=== PATIENT | female | born 1955 | race Caucasian/White ===

== ENCOUNTER 2021-02-24 11:22 | Emergency (ER) | payer MEDICARE, MEDICAID, SELFPAY ==
--- NOTE | ~2021-02-24 | XR_ITS ---
EXAMINATION: CHEST WITH LEFT RIBS, PELVIS AND LEFT HIP. LUMBAR SPINE. CLINICAL INFORMATION: Slipped and fell. Pain low back and left hip and leftRibs. COMPARISON: None TECHNIQUE: Lumbar spine 3 views. AP pelvis and left hip 3 views. Chest and left RIBS 4 views. FINDINGS: LUMBAR SPINE: There is normal lumbar lordosis. The vertebral heights and alignment is normal. There is loss of L2-L3 disc height. Rest the disc heights are maintained normal. There is mild endplate spondylosis throughout lumbar spine. No acute fracture, lytic or sclerotic process seen. There is moderate stool in the left colon. AP PELVIS: There is normal symmetry of bilateral SI joints and hip joints. There is mild pelvic tilt with the right hip higher compared to left side. No visible fracture or lytic process. There is mild constipation with scattered phleboliths in the pelvis. LEFT HIP: AP and frog-leg views left hip reveal no visible acute fracture, dislocation, bony erosive changes or loose bodies. The soft tissues are normal. The acetabulum is normal. CHEST: The lungs are well-expanded and clear of acute process. The heart size and pulmonary vascularity is normal. No bony thorax and abnormality seen. Left RIBS: There is no visible fracture or bony abnormality. The soft tissues are normal. XR/XR ribs LT min 3V w CXR1V IMPRESSION: Unremarkable lumbar spine., AP pelvis and left hip. Unremarkable chest exam. No left rib fractures seen.
--- NOTE | ~2021-02-24 | XR_ITS ---
EXAMINATION: CHEST WITH LEFT RIBS, PELVIS AND LEFT HIP. LUMBAR SPINE. CLINICAL INFORMATION: Slipped and fell. Pain low back and left hip and leftRibs. COMPARISON: None TECHNIQUE: Lumbar spine 3 views. AP pelvis and left hip 3 views. Chest and left RIBS 4 views. FINDINGS: LUMBAR SPINE: There is normal lumbar lordosis. The vertebral heights and alignment is normal. There is loss of L2-L3 disc height. Rest the disc heights are maintained normal. There is mild endplate spondylosis throughout lumbar spine. No acute fracture, lytic or sclerotic process seen. There is moderate stool in the left colon. AP PELVIS: There is normal symmetry of bilateral SI joints and hip joints. There is mild pelvic tilt with the right hip higher compared to left side. No visible fracture or lytic process. There is mild constipation with scattered phleboliths in the pelvis. LEFT HIP: AP and frog-leg views left hip reveal no visible acute fracture, dislocation, bony erosive changes or loose bodies. The soft tissues are normal. The acetabulum is normal. CHEST: The lungs are well-expanded and clear of acute process. The heart size and pulmonary vascularity is normal. No bony thorax and abnormality seen. Left RIBS: There is no visible fracture or bony abnormality. The soft tissues are normal. XR/XR hip LT w PEL1V IMPRESSION: Unremarkable lumbar spine., AP pelvis and left hip. Unremarkable chest exam. No left rib fractures seen.
--- NOTE | ~2021-02-24 | XR_ITS ---
EXAMINATION: CHEST WITH LEFT RIBS, PELVIS AND LEFT HIP. LUMBAR SPINE. CLINICAL INFORMATION: Slipped and fell. Pain low back and left hip and leftRibs. COMPARISON: None TECHNIQUE: Lumbar spine 3 views. AP pelvis and left hip 3 views. Chest and left RIBS 4 views. FINDINGS: LUMBAR SPINE: There is normal lumbar lordosis. The vertebral heights and alignment is normal. There is loss of L2-L3 disc height. Rest the disc heights are maintained normal. There is mild endplate spondylosis throughout lumbar spine. No acute fracture, lytic or sclerotic process seen. There is moderate stool in the left colon. AP PELVIS: There is normal symmetry of bilateral SI joints and hip joints. There is mild pelvic tilt with the right hip higher compared to left side. No visible fracture or lytic process. There is mild constipation with scattered phleboliths in the pelvis. LEFT HIP: AP and frog-leg views left hip reveal no visible acute fracture, dislocation, bony erosive changes or loose bodies. The soft tissues are normal. The acetabulum is normal. CHEST: The lungs are well-expanded and clear of acute process. The heart size and pulmonary vascularity is normal. No bony thorax and abnormality seen. Left RIBS: There is no visible fracture or bony abnormality. The soft tissues are normal. XR/XR lumbar spine 2-3V IMPRESSION: Unremarkable lumbar spine., AP pelvis and left hip. Unremarkable chest exam. No left rib fractures seen.
[2021-02-24 11:40] VITALS: BP 133/72; PULSE 70; RESP 18; TEMP 36.4; O2SAT 98; BMI 20.5
--- NOTE | 2021-02-24 12:05 | ED.FALL ---
HPI - Fall General Chief Complaint: Fall Stated Complaint: fall - back & rib pain Time Seen by Provider: 02/24/21 12:00 Source: patient Mode of arrival: ambulatory Limitations: no limitations History of Present Illness HPI Narrative: This is a 66-year-old female that presents emergency department with 6 days left-sided rib pain, shortness of breath, and left lower back pain. She states she was in her bath tub, cleaning with bleach when she slid onto her left side, and she immediately started experiencing severe stabbing pain to the left lateral rib/chest wall. She states that she immediately started feeling short of breath after she hit her side. She also states that 1 day after she slid she had one episode of bloody sputum then resolved, this was 5 days ago since that day she has not been having a cough. She states that breathing makes her rib pain worse, and holding her breath makes it better. She also reports left lower back pain since she slipped and fell. She states she did not hit her head, did not lose consciousness denies chest pain, dizziness, changes in bowel habits, fevers, chills, sick contacts, numbness, paresthesias. She is not on blood thinners. complaint: fall Onset (ago): day(s) (6 days ) Fall from: other (from kneeling ) Fall witnessed: no Place fall occurred: home Loss of consciousness: none Prolonged down time: no Symptoms prior to fall: none Context: tripped/slipped and other (slipped in bathtub) Location of injury: chest, back and other (left ribs) Severity: severe Severity scale (1-10): 9 Quality: sharp Associated symptoms (after fall): chest pain and shortness of breath Related Data Previous Rx's Medication Instructions Recorded cyclobenzaprine 10 mg tablet 10 mg PO Q8H #10 tab 02/24/21 oxycodone 5 mg tablet 5 mg PO Q6H PRN #14 tab 02/24/21 Allergies Allergy/AdvReac Type Severity Reaction Status Date / Time Iodinated Contrast Media Allergy Mild SWELLING Verified 02/24/21 11:39 [IV Dye, Iodine Containing] Review of Systems Review of Systems: Constitutional : No Weight loss, No Fever, No Chills, No Night Sweats, No Fatigue, NoMalaise ENT/Mouth: No ear pain, No sore throat, No Difficulty swallowing Cardiovascular : No Chest Pain, + SOB, No Dyspnea on Exertion, No Orthopnea, NoEdema, No Palpitations Respiratory : + Cough, No Sputum, No Wheezing, No Dyspnea, + one episode coughing up blood Gastrointestinal : No Nausea, No Vomiting, No abdominal pain, No Diarrhea, No blood streaked emesis, No coffee-ground emesis, No gross hematemesis, No blood streak stool, No gross hematochezia, No Melena Genitourinary : No irregular bleeding, No Dysuria, No Urinary Frequency, No Hematuria,No Urinary Incontinence, No Urgency, No Flank Pain Musculoskeletal : No joint pain, No Myalgias, No Joint Swelling, + left sided rib pain Skin : No Skin Lesions, No rash Neuro : No Weakness, No Numbness, No Paresthesias, No Loss of Consciousness, NoDizziness, No Headache Psych : No Social Issues, Heme/Lymph: No Bruising, No Bleeding,No Lymphadenopathy Endocrine : No Polyuria, No Polydipsia, No Temperature Intolerance Yes all other systems are reviewed and are negative COUNTS INCLUDE 234 BEDS AT THE [facility] Past Medical History Attestation statement: The following information was validated with the patient. Social History Social History Advance Directives: No Physical Exam Vital Signs: Vital Signs: Last Vital Signs Temp 97.5 F 02/24/21 11:40 Pulse 70 02/24/21 11:40 Resp 18 02/24/21 11:40 BP 133/72 02/24/21 11:40 Pulse Ox 98 02/24/21 11:40 Body Mass Index 20.5 vital signs have been reviewed as normal and appeared to be correct. Blood pressure normal. Heart rate normal. Respiration rate normal. Temperature normal. Oxygen saturation normal. Appearance: Alert. Oriented X3. No acute distress. Head: Normal external exam. Normocephalic. Eyes: PERRLA. EOMI. Conjunctiva and sclera normal. Eyelids normal. ENT: Pharynx normal. Uvula midline. Moist mucous membranes. No trismus noted. No drooling noted. No muffled voice noted. Neck: Normal inspection. Neck supple. FROM. No adenopathy. No meningeal signs. CVS: Normal heart rate and rhythm. Heart sound normal. No murmurs noted. Pulses normal throughout. Respiratory: No respiratory distress. Painless inspiration. + breath sounds diminished to left side. + pain to palpation over left sided ribs no overlying skin changes no paradoxical chest wall movement/breathing noted. No wheezes/rales/rhonchi noted. No accessory muscle usage noted or decreased air movement noted. No crepitus is noted. Not consistent with flail chest. No obvious deformities are noted. No obvious signs of trauma are noted. Abdomen: Soft and nontender. Nondistended. No guarding. No rigidity. Bowel sounds normal in all 4 quadrants. No distention noted. No organomegaly noted. No visible injury noted. No rebound tenderness. Negative Rovsing sign. Negative obturator's sign. Negative psoas sign. Negative Castillo sign. Back: No CVA tenderness. + limited range of motion noted noted to pain. Although no obvious deformities are noted. No step-offs are noted. No obvious injuries are noted. Patient neuro intact bilaterally is seen all 4 extremities. Reflex intact bilat and distant all 4 extremities. Negative straight leg raise bilaterally. Skin: Skin warm and dry. Normal skin color. Normal skin turgor. No rashes/lesions/lacerations noted. Extremities: Extremities exhibit normal range of motion. Extremities nontender. Neuro: Oriented X 3. No motor deficit. No sensory deficit. Reflexes normal. Normal steady gait. Course Course Course Narrative: 66-year-old female that presents to the emergency department after slip and fall onto her left side in the shower that occurred 6 days ago. She reports pain to her left side that increases with inspiration, she also reports shortness of breath for 6 days that began right after she slipped on her left side. Five days ago she also reports she had one episode of coughing up blood. She is not on any blood thinners, she did not hit her head, lose consciousness. She denies chest pain, abdominal pain, fevers, chills, bladder/bowel incontinence. Upon physical examination she is noted to be evidently on comfortable, she is in pain when she inhales, there is tenderness to palpation to the left lateral rib cage. There are no skin changes noted no ecchymosis or erythema. There is no paradoxical breathing/chest wall movement noted. There is also no step-offs noted in the anterior posterior chest. Decreased breath sounds are noted to the left side, when compared to the right side. Based off of this patient's physical examination, and history x-rays of the left ribs, lumbar spine, left hip have been ordered. A COVID swab his also been done at this time. Reevaluation(s) Reevaluation #1: No significant findings on x-ray, no fractures or pneumothorax. Plan is to discharge patient home at this time with pain medicaions MDM - Fall Medical Records Attestation: I reviewed the patient's medical records. Lab Data Labs: Lab Results 02/24/21 Range/Units 12:11 COVID-19 ([facility]) Negative (Negative) COVID-19 Clin Com See Note Imaging Data Hip/pelvis, lumbar spine, rib x-ray: Attestation: I personally reviewed and interpreted this imaging study as follows: Radiologist's impression: FINDINGS: LUMBAR SPINE: There is normal lumbar lordosis. The vertebral heights and alignment is normal. There is loss of L2-L3 disc height. Rest the disc heights are maintained normal. There is mild endplate spondylosis throughout lumbar spine. No acute fracture, lytic or sclerotic process seen. There is moderate stool in the left colon. AP PELVIS: There is normal symmetry of bilateral SI joints and hip joints. There is mild pelvic tilt with the right hip higher compared to left side. No visible fracture or lytic process. There is mild constipation with scattered phleboliths in the pelvis. LEFT HIP: AP and frog-leg views left hip reveal no visible acute fracture, dislocation, bony erosive changes or loose bodies. The soft tissues are normal. The acetabulum is normal. CHEST: The lungs are well-expanded and clear of acute process. The heart size and pulmonary vascularity is normal. No bony thorax and abnormality seen. Left RIBS: There is no visible fracture or bony abnormality. The soft tissues are normal.? XR/XR ribs LT min 3V w CXR1V IMPRESSION: Unremarkable lumbar spine., AP pelvis and left hip. ? Unremarkable chest exam. No left rib fractures seen.? Discharge Plan Discharge Clinical Impression: Contusion, Chest wall muscle strain, Lumbar strain Patient Disposition: Home, Self-Care Instructions: Muscle Strain (ED), Low Back Strain (ED) Additional Instructions: Take medications as prescribed Follow-up with her PCP in 2 days Return to the emergency department with new, or worsening symptoms. Prescriptions: New oxycodone 5 mg tablet 5 mg PO Q6H PRN (Reason: pain) Qty: 14 RF: 0 cyclobenzaprine 10 mg tablet 10 mg PO Q8H Qty: 10 RF: 0 Referrals: Asif Sam MD [Primary Care Provider] - 2 days
[2021-02-24 12:37] LABS: COVID-19 Test Negative (Negative); IDNOW Serial# 9DD0AD1C
[2021-02-24] MEDS: oxyCODONE HCl Immed Release 5 MG TABLET PO (14:06)
== END 2021-02-24 14:15 | disposition home or self-care (01) ==
PROVIDERS: Physician Assistant Medical; Emergency Provider Emergency Medicine; PCP Family Medicine
DX: S29.011A Strain of muscle and tendon of front wall of thorax, initial encounter (principal); S39.012A Strain of muscle, fascia and tendon of lower back, initial encounter; R07.81 Pleurodynia; M25.552 Pain in left hip; W18.2XXA Fall in (into) shower or empty bathtub, initial encounter; Y93.E8 Activity, other personal hygiene; Y92.002 Bathroom of unspecified non-institutional (private) residence as the place of occurrence of the external cause; Y99.9 Unspecified external cause status; Z79.899 Other long term (current) drug therapy; Z20.822 Contact with and (suspected) exposure to COVID-19
CPT/HCPCS: 36415; 71101; 72100; 73502; 87635; 99283; 99284

== ENCOUNTER 2021-07-02 11:25 | Emergency (ER) | payer MEDICARE, MEDICAID, SELFPAY ==
--- NOTE | ~2021-07-02 | XR_ITS ---
EXAMINATION: XR KNEE, LEFT CLINICAL INFORMATION: Left posterior knee pain COMPARISON: None TECHNIQUE: Four views of the left knee. FINDINGS: Bone alignment is normal. No acute fracture or dislocation is seen. There is a well-corticated soft tissue ossification adjacent to the medial femoral condyle questionable for old medial collateral ligament injury. There is mild arthritis at the patellofemoral joint with small osteophytes. There is a small osteophyte at the quadriceps tendon insertion to the patella. There is a small joint effusion. XR/XR knee LT 4V IMPRESSION: Probable old trauma to the medial femoral condyle/medial collateral ligament. Mild degenerative changes at the patellofemoral joint and small joint effusion.
--- NOTE | ~2021-07-02 | US_ITS ---
EXAMINATION: US VENOUS ULTRASOUND WITH DOPPLER LOWER EXTREMITY, LEFT CLINICAL INFORMATION: Left calf/posterior knee pain COMPARISON: X-ray from earlier the same day TECHNIQUE: Ultrasound of the deep veins is performed from the hip to the calf with compression sonography and color and pulse Doppler assessment. Spectral analysis with color-flow imaging is performed. FINDINGS: There is normal venous compression and respiratory variation and augmented flow. The visualized common femoral vein, superficial femoral vein, profunda femoral vein, popliteal vein, and the trifurcation region shows no evidence of deep venous thrombosis. There is a 7.3 x 1.5 x 5.6 cm Johnson's cyst. There is a small left groin lymph node. US/US venous duplex LE LT IMPRESSION: No DVT demonstrated in the left lower extremity. 7.3 x 1.5 x 5.6 cm Johnson's cyst.
[2021-07-02 11:41] VITALS: BP 162/78; PULSE 80; RESP 18; TEMP 36.5; O2SAT 97; BMI 21.2
--- NOTE | 2021-07-02 11:49 | ED_ITS ---
HPI - General Adult General Chief complaint: Extremity Injury, Lower Stated complaint: L KNEE SWELLING PAINFUL Time Seen by Provider: 07/02/21 11:42 Source: patient Mode of arrival: ambulatory Limitations: no limitations History of Present Illness HPI narrative: 66-year-old female presents to ED for left calf and left posterior knee pain since this morning. Patient denies any trauma. Patient states no redness, fever, chills, leg swelling or decreased in mobility. Patient states left calf and left posterior knee pain worse on movement. Patient states she fist felt pain while sitting in the bed and turning left lower extremity this morning. Patient denies any chest pain, shortness of breath, weakness, or dizziness. Related Data Previous Rx's Medication Instructions Recorded cyclobenzaprine 10 mg tablet 10 mg PO Q8H #10 tab 02/24/21 oxycodone 5 mg tablet 5 mg PO Q6H PRN #14 tab 02/24/21 naproxen 500 mg tablet 500 mg PO BID PRN 10 Days #20 tab 07/02/21 prednisone 20 mg tablet 40 mg PO DAILY 5 Days #10 tab 07/02/21 Allergies Allergy/AdvReac Type Severity Reaction Status Date / Time Iodinated Contrast Media Allergy Mild SWELLING Verified 02/24/21 11:39 [IV Dye, Iodine Containing] Review of Systems Verdana 4l Review of Systems: Verdana 4d left upper calf/posterior Verdana 4d knee pain Verdana 4d Yes all other systems are reviewed and are negative [facility] Past Medical History Medical History (Updated 07/02/21 @ 12:54 by DAVID Barron) No known health problems Social History Social History Advance Directives: No Advance Directives Information Provided: No Physical Exam Verdana 4l Vital Signs: Verdana 4d Verdana 4d Vital Signs: Verdana 4d Verdana 4Bd Last Vital Signs Verdana 4d Complex Care Nurse New 4d Complex Care Nurse New 4d Temp 97.7 F 07/02/21 11:41 Complex Care Nurse New 4d Pulse 80 07/02/21 11:41 Complex Care Nurse New 4d Resp 18 07/02/21 11:41 BP 162/78 H 07/02/21 11:41 Pulse Ox 97 07/02/21 11:41 BMI result Body Mass Index 21.2 Const: General: cooperative, healthy appearing, comfortable, no acute distress, well developed, alert, awake and Physically active Orientation/consciousness: pat ient oriented x3 HENMT: Head: Yes normal to inspection, Yes No palpable skull fracture present, Yes normocephalic, Yes atraumatic and No abrasion Eyes: General: appearance normal, both eyes and all related structures Neck: Neck: Yes normal visual inspection, Yes full ROM, Yes no lymphadenopathy, Yes no meningeal signs, Yes trachea midline and Yes supple Chest: Chest palpation & inspection: normal inspection of the chest and normal palpation of entire chest wall Resp: Effort & Inspection: normal respiratory effort and able to speak in complete sentences Auscultation: clear to auscultation bilaterally Cardio: Jugular venous distension: no JVD Heart sounds: S1 normal heart sound present and S2 normal heart sound present GI: Inspection: Yes normal to inspection and No abdominal wall ecchymosis Palpation (GI): Soft to palpation, not firm, nontender, no guarding and not rigid : General: No CVA tenderness and Yes no CVA tenderness Back/Spine/Pelvis: Back: no CVA tenderness, No CVA tenderness and No back tenderness Skin: General skin exam: no rashes or lesions noted and elasticity normal Neuro: General: patient oriented x3, gait normal, moves all extremities, Normal light touch and pain sensation, no meningeal signs, no focal motor deficits, CN's II- XI intact bilaterally and normal sensation to monofilament Extrem: Other: Anterior knee negative for any swelling, redness, warmth, ecchymosis, or deformity. Patient has complete range of motion of knee. Left lower extremity pulses intact. Vascular/motor/neuro exam intact. Left lower extremity positive for eczema rash. Patient states rash is chronic. Knee images: 1. Positive for upper calf tenderness. Negative for any erythema or swelling. Negative for palpable cord. Negative for any ecchymosis or deformity. 2. Popliteal pulses intact. Positive for mild tenderness. Negative for erythema or palpable cord. And if any ecchymosis deformity. Psych: Appearance: grossly normal, well kempt and not disheveled Course Course Course Narrative: History physical exam indicate muscle spasm will do Doppler on x-ray. Reevaluation(s) Reevaluation #1: Left lower extremity ultrasound came back negative for DVT. Ultrasound came morenita k positive for Johnson cyst. Left knee x-ray negative for any acute fracture or dislocation. Left knee x-ray positive for osteoarthritis an old medial collateral ligament injury. X-ray shows Tamiko joint effusion. No indication for arthrocentesis. Not suspecting septic joint or gout. Time: 12:48 Medical Decision Making MDM Narrative Medical decision making narrative: Johnson cyst, osteoarthritis Discharge Plan Discharge Clinical Impression: Johnson's cyst of knee, Osteoarthritis of knee, Joint effusion of knee Patient Disposition: Home, Self-Care Instructions: Osteoarthritis (ED), Bakers Cyst (ED), Swollen Joint (ED) Additional Instructions: Your x-ray shows arthritis small amount of fluid in the knee. Ultrasound negative for blood clot in your leg but does show cyst in posterior knee. Return to ED for any swelling of knee, redness, calf pain, coughing up blood, fever, chills, chest pain, shortness of breath, inability to ambulate, or any other concerning symptoms. Please follow up with PCP Prescriptions: New prednisone 20 mg tablet 40 mg PO DAILY 5 Days Qty: 10 0RF naproxen 500 mg tablet 500 mg PO BID PRN (Reason: pain) 10 Days Qty: 20 0RF No Action oxycodone 5 mg tablet 5 mg PO Q6H PRN (Reason: pain) Qty: 14 0RF Rx Instructions: Can partially fill prescription upon request cyclobenzaprine 10 mg tablet 10 mg PO Q8H Qty: 10 0RF Referrals: Noah Duke MD [Physician] - 2 days (Left Johnson cysts) Stand Alone Forms: Work/School Release Interventions: ED Discharge Assessment Last Done: 07/02/21 13:05 Discharge Date/Time: 07/02/21 13:21 Print Language: Ghanaian
== END 2021-07-02 13:21 | disposition home or self-care (01) ==
PROVIDERS: Emergency Provider Emergency Medicine Emergency Medical Services; PCP Family Medicine
DX: M71.22 Synovial cyst of popliteal space [Baker], left knee (principal); M17.12 Unilateral primary osteoarthritis, left knee; M25.462 Effusion, left knee; M25.562 Pain in left knee
CPT/HCPCS: 73564; 93971; 99283; 99284

== ENCOUNTER 2021-07-31 07:01 | Outpatient (REF) | payer MEDICARE, MEDICAID, SELFPAY | END 2021-07-31 07:02 | disposition home or self-care (01) | LOC: HO.HOSX 07:01 | PROVIDERS: Visit Provider Physician Assistant | DX: Z13.89 Encounter for screening for other disorder (principal) ==

== ENCOUNTER 2021-08-25 10:40 | Outpatient (REF) | payer MEDICARE, MEDICAID, SELFPAY ==
--- NOTE | ~2021-08-25 | XR_ITS ---
EXAMINATION: KNEE X-RAY CLINICAL INFORMATION: Pain COMPARISON: Previous x-ray June 2021 TECHNIQUE: Standing AP view of both knees and lateral and sunrise view of the left knee FINDINGS: Left knee: Bone alignment is normal. No acute fracture or dislocation is seen. There is a well-corticated soft tissue ossification adjacent to the medial femoral condyle that may be related to old trauma. There are mild degenerative changes at the patellofemoral joint. Joint spaces are otherwise normal. There is a small joint effusion. Standing AP view of the right knee is unremarkable. XR/XR knee LT 2V IMPRESSION: Right knee: Question old trauma to the medial femoral condyle. Mild degenerative changes at the patellofemoral joint and small joint effusion. Unremarkable standing AP view of the right knee.
--- NOTE | ~2021-08-25 | XR_ITS ---
EXAMINATION: KNEE X-RAY CLINICAL INFORMATION: Pain COMPARISON: Previous x-ray June 2021 TECHNIQUE: Standing AP view of both knees and lateral and sunrise view of the left knee FINDINGS: Left knee: Bone alignment is normal. No acute fracture or dislocation is seen. There is a well-corticated soft tissue ossification adjacent to the medial femoral condyle that may be related to old trauma. There are mild degenerative changes at the patellofemoral joint. Joint spaces are otherwise normal. There is a small joint effusion. Standing AP view of the right knee is unremarkable. XR/XR knee standing BI IMPRESSION: Right knee: Question old trauma to the medial femoral condyle. Mild degenerative changes at the patellofemoral joint and small joint effusion. Unremarkable standing AP view of the right knee.
== END 2021-08-25 10:41 | disposition home or self-care (01) ==
LOC: HO.HOSX 10:40
PROVIDERS: PCP Family Medicine; Visit Provider Physician Assistant
DX: M25.561 Pain in right knee (principal); M17.12 Unilateral primary osteoarthritis, left knee
CPT/HCPCS: 73560; 73565; 99202

== ENCOUNTER 2021-10-26 10:46 | Emergency (ER) | payer MEDICARE, MEDICAID, SELFPAY ==
--- NOTE | ~2021-10-26 | XR_ITS ---
EXAMINATION: XR LUMBOSACRAL SPINE CLINICAL INFORMATION: Right lumbar pain. COMPARISON: None TECHNIQUE: Three views of the lumbosacral spine. FINDINGS: There is normal lumbar lordosis. The vertebral heights and alignment are normal. There is loss of L2-L3 disc height. Rest of the disc heights are normal. There is mild ventral spondylosis L1-L2, L2-L3, L3-L4 disc levels. No lytic or sclerotic process seen. The SI joints are symmetrical. XR/XR lumbar spine 2-3V IMPRESSION: Mild degenerative disc changes L2-L3 disc level. There is mild ventral spondylosis throughout lumbar spine. No acute fracture seen.
[2021-10-26 10:48] VITALS: BP 142/74; PULSE 75; RESP 18; TEMP 36.9; O2SAT 99; BMI 22.1
[2021-10-26 10:58] LABS: MANUAL DIFF FLAG NO
[2021-10-26 11:01] LABS: Basophils Percent Auto 0.4 % (0-2); Eosinophils Absolute Auto 0.1 X10*3/uL (0.0-0.4); Eosinophils Percent Auto 1.6 % (0-4); Hematocrit 38.9 % (37.0-47.0); Imm Gran Abs Auto 0.03 X10*3/uL (0.00-0.03); Imm Gran Pct Auto 0.4 % (0.0-0.4); Lymphocytes Absolute Auto 1.3 X10*3/uL (1.2-4.9); Lymphocytes Percent Auto 16.4 % (20-40); Mean Corpuscular HGB Conc 30.8 g/dl (31.0-35.0); Mean Corpuscular Hemoglobin 24.7 pg (27.0-33.0); Mean Corpuscular Volume 80.2 fL (80.0-98.0); Mean Platelet Volume 10.2 fL (9.4-12.3); Monocytes Absolute Auto 0.4 X10*3/uL (0.1-1.2); Monocytes Percent Auto 5.1 % (2-11); Neutrophils Absolute Auto 5.8 x10*3/uL (2.0-8.3); Neutrophils Percent Auto 76.1 % (45-73); Platelet Count 386 X10*3/uL (160-400); Red Blood Count 4.85 X10*6/uL (4.20-5.50); Red Cell Distribution Width 15.7 % (11.0-16.0); White Blood Count 7.6 X10*3/uL (4.8-10.8)
[2021-10-26 11:09] LABS: Appearance Urine CLEAR; Color Urine YELLOW; Glucose Urine UA NEG (NEG); Leukocyte Esterase Urine NEG (NEG); Nitrite Urine NEG (NEG); PH 6.5 (5.0-8.0); Specific Gravity - Urine 1.015 (1.005-1.025); UACC Culture Trigger NO; Urine Blood 1+ (NEG); Urine Ketones NEG (NEG); Urine Protein NEG (NEG-TRACE)
[2021-10-26 11:17] LABS: Anion Gap 13 (12-20); Blood Urea Nitrogen 11 mg/dL (9-16); Calcium 9.8 mg/dL (8.4-10.2); Carbon Dioxide 28 mmol/L (22-29); Chloride 108 mmol/L (96-108); Creatinine Clr Calc Pharmacy 55.1; Estimated Glomerular Filt Rate > 60; Glucose Random 112 mg/dL (60-115); Potassium 4.5 mmol/L (3.3-5.1); Sodium 144 mmol/L (135-145)
[2021-10-26 11:32] LABS: Squamous Epithelial Cell Urine 1+ /LPF; WBC Urine 0 /HPF (0-4)
--- NOTE | 2021-10-26 17:00 | ED_ITS ---
HPI - Female Genitourinary General Chief complaint: Urogenital-Female Stated complaint: kidney pain Time Seen by Provider: 10/26/21 17:00 Source: patient Mode of arrival: ambulatory Limitations: no limitations History of Present Illness HPI Narrative: right lower back pain, patient denies injury. Right lumbar area, worse with lifting the leg up. This morning she needed help from her grandson to get out of bed. Onset (ago): week(s) Severity: mild Related Data Previous Rx's Medication Instructions Recorded cyclobenzaprine 10 mg tablet 10 mg PO Q8H #10 tab 02/24/21 oxycodone 5 mg tablet 5 mg PO Q6H PRN #14 tab 02/24/21 naproxen 500 mg tablet 500 mg PO BID PRN 10 Days #20 tab 07/02/21 prednisone 20 mg tablet 40 mg PO DAILY 5 Days #10 tab 07/02/21 acetaminophen 500 mg capsule 500 mg PO QID PRN #120 cap 08/25/21 meloxicam 15 mg tablet 15 mg PO DAILY 30 Days #30 tab 08/25/21 cyclobenzaprine 10 mg tablet 10 mg PO TID #10 tab 10/26/21 naproxen 500 mg tablet (Naprosyn) 500 mg PO BID #20 tab 10/26/21 Allergies Allergy/AdvReac Type Severity Reaction Status Date / Time Iodinated Contrast Media Allergy Mild SWELLING Verified 08/25/21 11:02 [IV Dye, Iodine Containing] Review of Systems Constitutional: Constitutional: Reports no additional constitutional complaints Eyes: Eyes: Reports no additional eye complaints ENT: Denies dizziness Cardiovascular: Cardiovascular: Reports no additional cardiovascular complaints Respiratory: Respiratory: Reports as per HPI Gastrointestinal: Gastrointestinal: Reports no additional gastrointestinal complaints Genitourinary: Genitourinary: Reports no additional female genitourinary complaints Musculoskeletal: Musculoskeletal: Reports no additional musculoskeletal complaints Integumentary/Breasts: Skin/Breast: Denies rash Neurologic: Reports system reviewed and no additional complaints, except as documented, Denies dizziness and Denies Sensory deficit (Neuro) Psychiatric: Psychiatric: Denies anxiety PMFSH Past Medical History Medical History Hypercholesteremia Hypertension No known health problems Social History Social History Advance Directives: No Advance Directives Information Provided: No Physical Exam Vital Signs: Vital Signs: Last Vital Signs Temp 98.3 F 10/26/21 18:00 Pulse 72 10/26/21 18:00 Resp 16 10/26/21 18:00 BP 163/82 H 10/26/21 18:00 Pulse Ox 96 10/26/21 18:00 BMI result Body Mass Index 22.1 Const: General: healthy appearing Nutritional Appearance: average body habitus Orientation/consciousness: oriented to person and patient oriented x3 Limitations: no limitations HEENT: Head: Yes normal to inspection Ears: external ears normal General nose exam: Normal external nose present Mouth: Normal oral and palatal mucosa present and oropharynx normal Throat: Yes posterior oropharynx normal Eyes: General: appearance normal, both eyes and all related structures Neck: Other: supple Neck: Yes normal visual inspection Chest: Chest palpation & inspection: normal inspection of the chest Resp: Auscultation: clear to auscultation bilaterally Cardio: Jugular venous distension: no JVD Rate: regular rate Rhythm: regular rhythm Heart sounds: S1 normal heart sound present and S2 normal heart sound present GI: Inspection: Yes normal to inspection Palpation (GI): Soft to palpation, nontender and No hepatosplenomegaly present Auscultation: normal bowel sounds Back/Spine/Pelvis: Other: right SI joint tenderness, no sciatica Skin: General skin exam: no rashes or lesions noted Neuro: General: oriented to person and patient oriented x3 Cranial nerves: Yes CN's II-XII intact bilaterally Motor exam (neuro): 5/5 motor strength present throughout Sensory Exam: No Sensory deficit (Neuro) Extrem: General: Yes normal to inspection Psych: Appearance: grossly normal MDM - Female Genitourinary Lab Data Result diagrams: 10/26/21 10:54 10/26/21 10:54 Labs: Lab Results 10/26/21 10/26/21 10/26/21 Range/Units 10:54 10:54 10:57 WBC 7.6 (4.8-10.8) X10*3/uL RBC 4.85 (4.20-5.50) X10*6/uL Hgb 12.0 (12.0-16.0) g/dl Hct 38.9 (37.0-47.0) % MCV 80.2 (80.0-98.0) fL MCH 24.7 L (27.0-33.0) pg MCHC 30.8 L (31.0-35.0) g/dl RDW 15.7 (11.0-16.0) % Plt Count 386 (160-400) X10*3/uL MPV 10.2 (9.4-12.3) fL Immature Gran % (Auto) 0.4 (0.0-0.4) % Neut % (Auto) 76.1 H (45-73) % Lymph % (Auto) 16.4 L (20-40) % [place] % (Auto) 5.1 (2-11) % Eos % (Auto) 1.6 (0-4) % Baso % (Auto) 0.4 (0-2) % Lymph # (Auto) 1.3 (1.2-4.9) X10*3/uL [place] # (Auto) 0.4 (0.1-1.2) X10*3/uL Eos # (Auto) 0.1 (0.0-0.4) X10*3/uL Baso # (Auto) 0.0 (0.0-0.2) X10*3/uL Abs Immat Gran (auto) 0.03 (0.00-0.03) X10*3/uL Absolute Neuts (auto) 5.8 (2.0-8.3) x10*3/uL Absolute Nucleated RBC 0.000 (0.0-0.012) X10*3/uL Nucleated RBC % (auto) 0.0 (0.0-0.2) /100WBC Sodium 144 (135-145) mmol/L Potassium 4.5 (3.3-5.1) mmol/L Chloride 108 (96-108) mmol/L Carbon Dioxide 28 (22-29) mmol/L Anion Gap 13 (12-20) BUN 11 (9-16) mg/dL Creatinine 0.83 (0.5-1.4) mg/dL Estim Creat Clear Calc 55.1 Estimated GFR > 60 Random Glucose 112 (60-115) mg/dL Calcium 9.8 (8.4-10.2) mg/dL Urine Color YELLOW Urine Appearance CLEAR Urine pH 6.5 (5.0-8.0) Ur Specific [place] 1.015 (1.005-1.025) Urine Protein NEG (NEG-TRACE) MG/DL Urine Glucose (UA) NEG (NEG) MG/DL Urine Ketones NEG (NEG) MG/DL Urine Blood 1+ H (NEG) Urine Nitrite NEG (NEG) Ur Leukocyte Esterase NEG (NEG) Urine RBC 5-9 H (0) /HPF Urine WBC 0 (0-4) /HPF Ur Squamous Epith Cells 1+ /LPF Urine Bacteria NONE /LPF Imaging Data lumbar: Radiologist's impression: IMPRESSION: Mild degenerative disc changes L2-L3 disc level. There is mild ventral spondylosis throughout lumbar spine. No acute fracture seen. Discharge Plan Discharge Clinical Impression: Lumbar back pain Patient Disposition: Home, Self-Care Prescriptions: New cyclobenzaprine 10 mg tablet 10 mg PO TID Qty: 10 0RF naproxen [Naprosyn] 500 mg tablet 500 mg PO BID Qty: 20 0RF No Action oxycodone 5 mg tablet 5 mg PO Q6H PRN (Reason: pain) Qty: 14 0RF Rx Instructions: Can partially fill prescription upon request cyclobenzaprine 10 mg tablet 10 mg PO Q8H Qty: 10 0RF prednisone 20 mg tablet 40 mg PO DAILY 5 Days Qty: 10 0RF naproxen 500 mg tablet 500 mg PO BID PRN (Reason: pain) 10 Days Qty: 20 0RF meloxicam 15 mg tablet 15 mg PO DAILY 30 Days Qty: 30 0RF acetaminophen 500 mg capsule 500 mg PO QID PRN (Reason: fever or pain) Qty: 120 0RF Referrals: Physician,Nonstaff [Physician] - 1 week
[2021-10-26] MEDS: Ketorolac Tromethamine 60 MG/2 ML VIAL IM (17:14)
[2021-10-26 18:00] VITALS: BP 163/82; PULSE 72; RESP 16; TEMP 36.8; O2SAT 96
== END 2021-10-26 18:46 | disposition home or self-care (01) ==
PROVIDERS: Emergency Provider Emergency Medicine; PCP Student in an Organized Health Care Education/Training Program
DX: M54.50 Low back pain, unspecified (principal); I10 Essential (primary) hypertension; E78.5 Hyperlipidemia, unspecified
CPT/HCPCS: 36415; 72100; 80048; 81001; 81003; 85025; 96372; 99284; J1885

== ENCOUNTER 2022-02-09 14:48 | Outpatient (REF) | payer MEDICARE, MEDICAID, SELFPAY ==
--- NOTE | ~2022-02-09 | MM_ITS ---
EXAMINATION: BONE DENSITOMETRY CLINICAL INDICATION: Osteoporosis. COMPARISON: This is the patient's baseline examination. TECHNIQUE: Using a [employer]o DXA System (software version: 13.1) manufactured by [employer], dual-energy x-ray absorptiometry was performed of the lumbar spine and left hip. The images are of good technical quality. Summary results are attached. FINDINGS: AP SPINE L1-L4: BMD 1.047 g/cm2, Z-score 0.8, T-score -1.1, osteopenia. LEFT FEMUR, NECK: BMD 0.749 g/cm2, Z-score -0.4, T-score -2.1, osteopenia. LEFT FEMUR, TOTAL: BMD 0.758 g/cm2, Z-score -0.5, T-score -2.0, osteopenia. IDENTIFIED RISK FACTORS: Early menopause, secondary osteoporosis, alcohol 3 more units per day, history of fracture (adult), tobacco use (current smoker), hysterectomy.. HISTORY OF FRACTURE: Other. MEDICATIONS: None listed. MM/XR DEXA axial skeleton IMPRESSION: 1. DIAGNOSIS: Osteopenia based on the lowest T-score value of -2.1 in the femoral neck applying World Health Organization criteria. 2. 10-YEAR FRACTURE RISK PREDICTION, FRAX: Major osteoporotic fracture (clinical spine, forearm, hip or shoulder) 10.7%. Hip fracture 3.0%. 3. Treatment Recommendations: NOF guidelines recommend consideration for treatment in postmenopausal women and men age 50 and older presenting with the following: -A hip or vertebral (clinical or morphometric) fracture. -T-score less than or equal to -2.5 at the femoral neck or spine after appropriate evaluation to exclude secondary causes. -Low bone mass at the hip or spine and a 10-year fracture probability by FRAX of greater than or equal to 3% for hip fracture or greater than or equal to 20% for major osteoporotic fracture based on the [place] adapted WHO algorithm. 4. Other Recommendations: All treatment decisions require clinical judgment and consideration of individual patient factors, including patient preferences, comorbidities, previous drug use, risk factors not captured in the FRAX model (e.g. frailty, falls, vitamin D deficiency, increased bone turnover, interval significant decline in bone density) and possible under or overestimation of fracture risk by FRAX. Additional medical evaluation for secondary cause of low bone mineral density may be appropriate. FUTURE SCAN RECOMMENDATION: People with diagnosed cases of osteoporosis or at high risk for fracture should have regular bone mineral density tests. For patients eligible for Medicare, routine testing is allowed once every 2 years. The testing frequency can be increased to one year for patients who have rapidly progressing disease, those who are receiving or discontinuing medical therapy to restore bone mass, or have additional risk factors.
== END 2022-02-09 14:49 | disposition home or self-care (01) ==
LOC: HO.MAMMO 14:48
PROVIDERS: Visit Provider Nurse Practitioner Primary Care
DX: Z13.820 Encounter for screening for osteoporosis (principal); Z78.0 Asymptomatic menopausal state
CPT/HCPCS: 77080

== ENCOUNTER 2022-10-04 09:12 | Outpatient (REF) | payer MEDICARE, MEDICAID, SELFPAY ==
--- NOTE | ~2022-10-04 | MM_ITS ---
EXAMINATION: MM SCREENING DIGITAL BREAST TOMOSYNTHESIS, BILATERAL CLINICAL INFORMATION: Screening. Asymptomatic. The lifetime risk of breast cancer based on the Tyrer-Cuzick Model is 3%. COMPARISON: Mammography: 03/18/2017, 07/08/2015, 04/26/2012 TECHNIQUE: Digital breast tomosynthesis is performed in both the craniocaudal and mediolateral oblique views along with computer-aided detection (CAD). Synthesized 2D images are generated from the tomosynthesis. FINDINGS: There are scattered areas of fibroglandular density (ACR BI-RADS breast composition Category b). There are no significant masses, abnormal calcifications, or other abnormalities. There are some scattered fine vascular calcifications in each breast. The axilla and skin contours are unremarkable. No significant changes. MM/MM tomosynthesis screening BI IMPRESSION: No mammographic evidence of malignancy. ASSESSMENT: BI-RADS 2: Benign RECOMMENDATION: Routine annual mammography screening. This patient's information was entered into a reminder system with a target due date for their next mammogram.
== END 2022-10-04 09:13 | disposition home or self-care (01) ==
LOC: HO.MAMMO 09:12
PROVIDERS: PCP Nurse Practitioner Primary Care; Visit Provider Nurse Practitioner Primary Care
DX: Z12.31 Encounter for screening mammogram for malignant neoplasm of breast (principal)
CPT/HCPCS: 77063; 77067

== ENCOUNTER 2022-10-13 09:37 | Outpatient (REF) | payer MEDICARE, MEDICAID, SELFPAY ==
[2022-10-13 17:02] LABS: Urine Cytology See Pathology rpt
== END 2022-10-13 09:38 | disposition home or self-care (01) ==
LOC: HO.LNP 09:37
PROVIDERS: PCP Nurse Practitioner Primary Care; Visit Provider Nurse Practitioner Family
DX: R31.29 Other microscopic hematuria (principal)
CPT/HCPCS: 88112; 99202

== ENCOUNTER 2022-10-27 06:57 | Outpatient (REF) | payer MEDICARE, MEDICAID, SELFPAY ==
--- NOTE | ~2022-10-27 | CT_ITS ---
EXAMINATION: CT ABDOMEN AND PELVIS WITHOUT CONTRAST CLINICAL INDICATION: Microscopic hematuria. COMPARISON: None available. TECHNIQUE: 5 mm thin axial and reformatted 3 mm thin sagittal coronal images of the abdomen and pelvis were obtained without contrast. DLP 251 mGy-cm This CT examination was performed using dose optimization technique as appropriate, variously including the following: Automated exposure control Adjustment of MA and/or KV according to patient size(this includes techniques or standardized protocols for targeted exams where dose is matched to indication/reason for exam; extremities or head. Use of iterative reconstruction techniques. FINDINGS: LUNG BASES: The lung bases are clear. The heart size is normal. LIVER, DUCTS AND GALLBLADDER: The liver is homogeneous in density, normal in size and contour. No focal lesion or intrahepatic ductal dilatation. A 5 mm hypodensity is seen along the left hepatic lobe question focal fatty infiltration along the ligament of teres. The gallbladder is unremarkable. SPLEEN: Spleen is normal in size. There is a 1.6 cm hypodensity in the inferior spleen with adjacent calcifications. Question complex cyst versus hemangioma. PANCREAS: Unremarkable. ADRENAL GLANDS: Unremarkable. KIDNEYS AND URETERS: Both kidneys are normal in size, shape and position. No radiopaque renal calculi or hydronephrosis is seen. LYMPHOVASCULAR STRUCTURES: The abdominal aorta is of normal caliber. No abnormally sized retroperitoneal lymph nodes are seen. GI TRACT: There is scattered stool, diverticuli and gas seen throughout the colon without significant distention. The small bowel loops are of normal caliber. Appendix is of normal caliber. No inflammatory process is seen the abdomen. ABDOMINAL WALL: Unremarkable. There is a small foreign body seen outside the anterior abdominal wall producing beam hardening artifact. There is a small lipoma of the right lateral abdominal wall axial image 43/3. It measures 7.5 cm in length on sagittal image 92/6. PELVIS: The bladder is nondistended. The uterus is anteverted and unremarkable. There are scattered phleboliths in the pelvis. OSSEOUS STRUCTURES: No aggressive lytic or sclerotic process is seen. CT/CT kidney stone IMPRESSION: No radiopaque renal calculi or hydroureteronephrosis. The bladder is unremarkable. Colonic diverticulosis with mild constipation. Appendix is normal.
== END 2022-10-27 06:58 | disposition home or self-care (01) ==
LOC: HO.CT 06:57
PROVIDERS: PCP Nurse Practitioner Primary Care; Visit Provider Nurse Practitioner Family
DX: R31.29 Other microscopic hematuria (principal)
CPT/HCPCS: 74176

== ENCOUNTER 2022-11-09 10:42 | Day surgery (SDC) | payer MEDICARE, MEDICAID, SELFPAY ==
[2022-11-05 13:46] VITALS: BMI 22.0
--- NOTE | ~2022-11-09 | FL_ITS ---
EXAMINATION: XR FLUOROSCOPY WITH IMAGES CLINICAL INFORMATION: Cystogram retrograde. COMPARISON: CT of the abdomen and pelvis October 2022 TECHNIQUE: Fluoroscopy Supervised By: Dr. Billy. Fluoroscopy Time: 25.4 seconds. Cumulative Dose: 5.45 mGy. DAP: Gycm2. Images: 4. FINDINGS: Images demonstrate opacification of the bilateral renal collecting systems. There is mild bilateral hydronephrosis. This is new from October 2022 CT scan may be related to contrast injection. FL/FL guidance in OR IMPRESSION: Fluoroscopy guidance for bilateral retrograde exam.
[2022-11-09 12:28] VITALS: BP 165/79; PULSE 62; RESP 15; TEMP 36.5; O2SAT 98
[2022-11-09] MEDS: Lactated Ringers 1,000 ML 100 ML IVCONT (12:53)
--- NOTE | 2022-11-09 15:05 | P.CONAN_ITS ---
Documented by User: Brandy Robles NP 11/08/22 10:44 HPI - Anesthesia Eval Consult details Narrative: 67yo F for Bilateral Cystoscopy Retrograde PMFSH Active Problems Active Problems: All Active Problems (Updated 10/13/22 @ 10:18 by ALEYDA MejiaP-) Microscopic hematuria (Acute) Patellofemoral arthritis of left knee (Acute) Past Medical History Medical History Benign tumor Depression Hypercholesteremia Hypertension No known health problems Social History Social History Patient Tobacco Use Status: Current everyday Tobacco user Tobacco use type: Cigarette Cigarettes Per Day: 3 Use of substances other than those prescribed or required for medical reasons: Yes Substance Use Frequency: Daily Are you DNR?: No Advance Directives: No Advance Directives Information Provided: No Advance Directives on File: No Meds Allergies Allergy/AdvReac Type Severity Reaction Status Date / Time Iodinated Contrast Media Allergy Unknown Anaphylaxis Verified 11/09/22 12:55 [IV Dye, Iodine Containing] Home Medications Medication Instructions Recorded Confirmed Last Taken Type aspirin 81 mg tablet,delayed 81 mg PO DAILY 10/13/22 11/05/22 11/07/22 History release atorvastatin 10 mg tablet 10 mg PO DAILY 10/13/22 11/05/22 Unknown History buspirone 10 mg tablet 10 mg PO TID 10/13/22 11/05/22 Unknown History clonazepam 0.5 mg tablet 0.5 mg PO BID PRN Anxiety 10/13/22 11/05/22 Unknown History lisinopril 10 mg tablet 10 mg PO DAILY 10/13/22 11/05/22 Unknown History mirtazapine 45 mg tablet 45 mg PO BEDTIME 10/13/22 11/05/22 Unknown History zolpidem 5 mg tablet 5 mg PO BEDTIME PRN Insomnia 10/13/22 11/05/22 Unknown History Exam Exam Date and Time: November 08, 2022 1044 Height,Weight and Vital Signs: Height 5 ft 3 in Weight 56.245 kg Assessment and Plan Assessment Anesthesia Assessment: Chart Reviewed Documented by User: Josephine Alegria DO 11/09/22 15:18 [facility] Past Medical History Medical History Benign tumor Depression Hypercholesteremia Hypertension No known health problems Surgical History History of Problems with Anesthesia: No Social History Social History Patient Tobacco Use Status: Current everyday Tobacco user Tobacco use type: Cigarette Cigarettes Per Day: 3 Use of substances other than those prescribed or required for medical reasons: Yes Substance Use Frequency: Daily Are you DNR?: No Advance Directives: No Advance Directives Information Provided: No Advance Directives on File: No Meds Allergies Allergy/AdvReac Type Severity Reaction Status Date / Time Iodinated Contrast Media Allergy Unknown Anaphylaxis Verified 11/09/22 12:55 [IV Dye, Iodine Containing] Home Medications Medication Instructions Recorded Confirmed Last Taken Type aspirin 81 mg tablet,delayed 81 mg PO DAILY 10/13/22 11/05/22 11/07/22 History release atorvastatin 10 mg tablet 10 mg PO DAILY 10/13/22 11/05/22 Unknown History buspirone 10 mg tablet 10 mg PO TID 10/13/22 11/05/22 Unknown History clonazepam 0.5 mg tablet 0.5 mg PO BID PRN Anxiety 10/13/22 11/05/22 Unknown History lisinopril 10 mg tablet 10 mg PO DAILY 10/13/22 11/05/22 Unknown History mirtazapine 45 mg tablet 45 mg PO BEDTIME 10/13/22 11/05/22 Unknown History zolpidem 5 mg tablet 5 mg PO BEDTIME PRN Insomnia 10/13/22 11/05/22 Unknown History Exam Exam Date and Time: November 09, 2022 1505 Height,Weight and Vital Signs: Height 5 ft 3 in Weight 56.245 kg Vital Signs Temperature 97.7 F 11/09/22 12:28 Pulse Rate 62 11/09/22 12:28 Respiratory Rate 15 11/09/22 12:28 Blood Pressure 165/79 H 11/09/22 12:28 Pulse Oximetry 98 11/09/22 12:28 Oxygen Delivery Method Room Air 11/09/22 12:28 Temperature 97.7 F 11/09/22 12:28 Pulse Rate 62 11/09/22 12:28 Respiratory Rate 15 11/09/22 12:28 Blood Pressure 165/79 H 11/09/22 12:28 Pulse Oximetry 98 11/09/22 12:28 Oxygen Delivery Method Room Air 11/09/22 12:28 Airway Mallampati Class: I TM Dist: >3cm Neck ROM: Full Loose/Missing/Broken Teeth: Yes (broken front teeth) Heart: S1S2 Lungs: CTAB Assessment and Plan Assessment Anesthesia Assessment: Anesthesia Plan Discussed and Chart Reviewed Final Anesthetic Review History of Problems with Anesthesia: No NPO: Yes ASA Class: II Final Preanesthetic Review: No Changes in Pt Med Stat, Meds/Allgs Chart Reviewed, Consent Obtained/Reviewed and Anes Risks/Benef Reviewed Patient Risk: Low Procedure Risk: Low Anesthetic Plan Anesthetic Plan: MAC: and Agree w/ Assess. and Plan Disposition: Standard PACU
--- NOTE | 2022-11-09 15:09 | MHC.SHP ---
Pre-Procedural Eval Section A Date of Service: 11/09/22 The patient is an INPATIENT: No The History & Physical has been completed within 30 days and I have reviewed it.: Yes Section B Chief Complaint: Other microscopic hematuria Relevant Family History (Specify if Yes): No Relevant Social History: Tobacco Use Allergies: Allergies Allergy/AdvReac Type Severity Reaction Status Date / Time Iodinated Contrast Media Allergy Unknown Anaphylaxis Verified 11/09/22 12:55 [IV Dye, Iodine Containing] Plan Diagnosis/Plan: Unchanged I have reviewed the history and physical and performed a pertinent physical examination on my patient. No changes have occurred unless specified. The patient has IV contrast allergy. Plan Cystoscopy. bilateral retrogrades. Discussed risks to include but not limited to, blood in the urine, burning with urination, urgency. Time Spent With Patient Time: Total time managing care of this patient today ____ minutes.
[2022-11-09 15:52] VITALS: BP 159/85; PULSE 84; RESP 16; TEMP 36.8; O2SAT 98
--- NOTE | 2022-11-09 15:55 | P.OP_ITS ---
Operative Note Operative Note Date of Service: 11/09/22 Narrative: PreOperative Diagnosis:?? microscopic hematuria, nicotine dependence Post Operative Diagnosis:?? ?Microscopic hematuria, nicotine dependence Procedure: - cystoscopy, bilateral retrograde Findings: No suspicious bladder lesions, bilateral retrogrades, no filling defects, ureters and renal pelvis. Surgeon:?Dr Johnna Hernandez Anesthesia:? MAC Indications for procedure: Dot is a 67 year old female being evauated for microscopic hematuria. Significant history of nicotine dependence. Procedure: After informed consent was verified the patient was brought to the operating placed on the OR table in supine position.? IV sedation was administered per protocol.? The patient was placed in lithotomy position, prepped and draped in the usual sterile fashion.? Safety pause time-out and side of surgery confirmed.? Antibiotics confirmed. 2 % lidocaine jelly was inserted transurethrally. A 22 Sinhala cystoscope was inserted transurethrally, The bladder was visualized.? Both ureteric orifices were in normal position. The? left ureteric orifice was cannulated? and a retrograde examination was performed, ureter and renal calyces within normal limits. The right ureteral orifice was cannulated with the use of a guide wire, retrogrades were within normal limits. The bladder was emptied.? The rigid cystoscope was removed. ? 2 % lidocaine jelly was inserted transurethrally. The patient tolerated the procedure well and was brought to the recovery room in stable condition. Complications: None Drains: None
[2022-11-09 15:57] VITALS: BP 168/90; PULSE 67; RESP 16; O2SAT 98
[2022-11-09 16:07] VITALS: BP 142/94; PULSE 66; RESP 16; TEMP 36.7; O2SAT 99
[2022-11-09] MEDS: Phenazopyridine HCL 200 MG TABLET PO (16:29)
== END 2022-11-09 16:33 | disposition home or self-care (01) ==
PROVIDERS: PCP Nurse Practitioner Primary Care; Visit Provider Urology
PROC: 0TJB8ZZ Inspection of Bladder, Via Natural or Artificial Opening Endoscopic (ICD-10-PCS; CPT 52005; principal; 2022-11-09 11:55)
DX: R31.29 Other microscopic hematuria (principal); I10 Essential (primary) hypertension; E78.00 Pure hypercholesterolemia, unspecified; Z79.82 Long term (current) use of aspirin; Z79.899 Other long term (current) drug therapy; Z91.040 Latex allergy status; F17.210 Nicotine dependence, cigarettes, uncomplicated
CPT/HCPCS: 52005; C1769; J0690; J2250; J3010; Q9967

== ENCOUNTER 2022-12-17 09:19 | Outpatient (REF) | payer MEDICARE, MEDICAID, SELFPAY ==
[2022-12-17 16:26] LABS: Urine Cytology See Pathology rpt
== END 2022-12-17 09:20 | disposition home or self-care (01) ==
LOC: HO.LAB 09:19
PROVIDERS: PCP Nurse Practitioner Primary Care; Visit Provider Nurse Practitioner Family
DX: R31.29 Other microscopic hematuria (principal)
CPT/HCPCS: 88112; 99212

== ENCOUNTER 2022-12-17 09:19 | Outpatient (AMB) | payer MEDICARE, MEDICAID, SELFPAY ==
--- NOTE | 2022-12-17 09:43 | MHC.OFFVIS ---
Intake Intake Visit Reasons: 3w follow up Intake Note: Patient is present for follow up microscopic hematuria Urology Medications: ?pyridium Blood Thinner: aspirin Accompanied by: Self / Same As Patient Allergies Iodinated Contrast Media [IV Dye, Iodine Containing] Allergy (Unknown, Verified 12/17/22 10:01) Anaphylaxis Medication List - Last Reconciled 12/17/22 by LETTY Mejia aspirin 81 mg PO DAILY atorvastatin 10 mg PO DAILY buspirone 10 mg PO TID clonazepam 0.5 mg PO BID PRN cyclobenzaprine 10 mg PO Q8H lisinopril 10 mg PO DAILY mirtazapine 45 mg PO BEDTIME naproxen 500 mg PO BID PRN 10 days zolpidem 5 mg PO BEDTIME PRN HPI HPI Comments History of Present Illness Details Dot is a very pleasant 67-year-old female patient of Dr. Prince. Patient with past medical history of depression, hypercholesteremia, and hypertension. She presents to the office today for a follow-up of her microscopic hematuria. Of note, patient is status post cystoscopy bilateral retrograde in the OR with Dr. Billy on 11/09 for microscopic hematuria in the setting of nicotine dependence. Patient with an allergy to iodine contrast therefore unable to obtain CT urogram for further assessment evaluation. Urine cytology 10/26 Negative for high-grade urothelial carcinoma. These results were reviewed with the patient today. Findings of cystoscopy bilateral retrogrades with no suspicious bladder lesions, bilateral retrogrades, no filling defects, ureters and renal pelvis. These results were also reviewed with the patient today. When asked patient reports to be doing and feeling well. She continues smoking 1-2 cigarettes daily. In office urinalysis results reviewed with the patient today. 1+ microscopic hematuria otherwise within normal limits. Discussed at length importance of limiting/quitting cigarette smoking for overall health and well-being. She otherwise denies any urinary issues or concerns at this time. When asked she denies urinary urgency, urinary frequency, incontinence, nocturia, hematuria, dysuria, foul smelling urine, changes to urinary stream, flank pain, fever, and or chills. She is happy with her current voiding parameters. [facility] Medical History Benign tumor Depression Hypercholesteremia Hypertension No known health problems Social History Patient Tobacco Use Status: Current everyday Tobacco user Tobacco use type: Cigarette Cigarettes Per Day: 3 Review of Systems Const All systems reviewed & are unremarkable except as noted in HPI and below Reports no additional complaints Eyes Reports no additional complaints ENT Reports no additional complaints Card Reports as per HPI Resp Reports no additional complaints GI Reports no additional complaints Reports as per HPI Musc Reports no additional complaints Neuro Reports no additional complaints Psych Reports as per HPI Endo Reports no additional complaints Ishan/Lymph Reports no additional complaints Aller/Immun Reports no additional complaints Physical Exam Const General: cooperative, healthy appearing, comfortable, no acute distress, well developed, alert and awake Orientation/consciousness: patient oriented x3 Limitations: no limitations HEENT Head: Yes normal to inspection, Yes normocephalic and Yes atraumatic Ears: hearing grossly normal bilaterally Eyes General: appearance normal, both eyes and all related structures Neck Neck: Yes normal visual inspection and Yes trachea midline Chest Chest palpation & inspection: normal inspection of the chest Resp Effort & Inspection: normal respiratory effort and able to speak in complete sentences Cardio Rate: regular rate GI Inspection: Yes normal to inspection General: Yes no CVA tenderness Back/Spine/Pelvis Back: no CVA tenderness Skin General skin exam: no rashes or lesions noted Neuro General: patient oriented x3 Extrem General: Yes normal to inspection Psych Appearance: grossly normal and well kempt Mental Status: mental status grossly normal Speech and movement: Normal speech and movement present and Clear speech present Affect: normal affect Attitude: cooperative Thought process: Normal thought process present Thought content: Normal thought content present Insight: Fair insight present (Psych) Judgement: Fair judgement present (Psych) Results AMB Urinalysis, Automated UA Leukoctes 0 Matthias/uL Last Edit by [employer]sen on 12/17/22 09:56 UA Nitrite Negative Last Edit by [employer] on 12/17/22 09:56 UA Urobilinogen 0.2 mg/dL Last Edit by [email or web address] on 12/17/22 09:56 UA Protein 0 mg/dL Last Edit by [email or web address] on 12/17/22 09:56 UA pH 6.0 Last Edit by [email or web address] on 12/17/22 09:56 UA Blood 25 Bubba/uL Last Edit by [employer]sen on 12/17/22 09:56 UA Specific [place] 1.010 Last Edit by Jaylan Connolly on 12/17/22 09:56 UA Ketone Negative Last Edit by Jaylan Connolly on 12/17/22 09:56 UA Bilirubin 0 mg/dL Last Edit by Jaylan Connolly on 12/17/22 09:56 UA Glucose 0 mg/dL Last Edit by Jaylan Connolly on 12/17/22 09:56 Results Reviewed Results Reviewed: Laboratory Last Values Urine pH (Auto) 6.0 12/17/22 09:44 Specific [place] (Auto) 1.010 12/17/22 09:44 Urine Protein (Auto) 0 mg/dL 12/17/22 09:44 Glucose (UA)(Auto) 0 mg/dL 12/17/22 09:44 Urine Ketones (Auto) Negative 12/17/22 09:44 Urine Blood (Auto) 25 Bubba/uL 12/17/22 09:44 Urine Nitrite (Auto) Negative 12/17/22 09:44 Urine Bilirubin (Auto) 0 mg/dL 12/17/22 09:44 Urine Urobilinogen (Auto) 0.2 mg/dL 12/17/22 09:44 Leukocyte Esterase (Auto) 0 Matthias/uL 12/17/22 09:44 Assessment & Plan Assessment & Plan (1) Microscopic hematuria: Code(s): R31.29 - Other microscopic hematuria Plan In office urinalysis results reviewed with the patient today; as noted above Recent urine cytology results reviewed with the patient today; as noted above Patient s/p cystoscopy bilateral retrogrades in OR; findings negative Discussed at length importance of quitting/limiting cigarette smoking for over all health and well being. Patient denies any issues or concerns at this time; she is happy with her current voiding parameters Retroperitoneal ultrasound in 1 year. Follow-up in 1 year with imaging to be completed prior; or sooner with any issues, concerns, and or questions Orders: Orders US retroperitoneal comp 364 Days R31.29 - Other microscopic hematuria Urine Cytology Today R31.29 - Other microscopic hematuria AMB Urinalysis Automated Today Z13.9 - Encounter for screening, unspecified Patient Instructions: The patient had an opportunity to ask questions regarding the treatment plan. All questions were answered. Physical exam, labs, and imaging were discussed and reviewed in detail. As well as risks, benefits, and discussion of treatment choices. No major barriers to understanding were identified. The patient expressed understanding and agreement with the above treatment plan. The patient was made aware they should contact our office by phone for worsening of their current condition, the appearance of new symptoms, or with any questions or concerns. Compliance is encouraged with any medications and follow up testing that is ordered. It is a privilege to be allowed the opportunity to participate in? your urological care.? Again, if you have any questions or concerns If you have any questions or concerns please do not hesitate to contact me. The office is [phone]. This note is constructed using voice recognition software. While every effort has been made to ensure accuracy front office java developer errors may have been included. Yours sincerely, LETTY Mejia Coding Level of Care Code Est Pt Level 3 (57293) Diagnoses Microscopic hematuria R31.29
== END 2022-12-17 09:59 | disposition home or self-care (01) ==
PROVIDERS: PCP Nurse Practitioner Primary Care; Visit Provider Nurse Practitioner Family
DX: R31.29 Other microscopic hematuria (principal)
CPT/HCPCS: 99213

== ENCOUNTER 2023-04-21 10:12 | Outpatient (AMB) | payer MEDICARE, MEDICAID, SELFPAY ==
--- NOTE | 2023-04-21 11:07 | MHC.OFFVIS ---
Intake Vital Signs 04/21/23 11:10 Height 5 ft 2 in Weight 128 lb BMI 23.4 Intake Visit Reasons: O/V left knee pain Intake Note: Dot 68 yr old female presents with complaints of progressively worsening left knee pain and giving way. Patient states that she injured her left knee several years ago while playing with her grandson. She twisted her knee and had acute onset of pain. Since that time her symptoms have gotten worse in spite of continued non operative treatments. She has tried Tylenol and anti-inflammatory medicines which gave her minimal relief. She has had injections in the past which gave her no relief. She has also done physical therapy for 12 weeks over the last 6 months which aggravated her pain. She states that her knee will give out several times per day. Allergies Iodinated Contrast Media [IV Dye, Iodine Containing] Allergy (Unknown, Verified 04/21/23 11:10) Anaphylaxis Medication List - Last Reconciled 04/21/23 by Gregg Guevara MD aspirin 81 mg PO DAILY atorvastatin 10 mg PO DAILY buspirone 10 mg PO TID clonazepam 0.5 mg PO BID PRN cyclobenzaprine 10 mg PO Q8H lisinopril 10 mg PO DAILY meloxicam 15 mg PO DAILY PRN mirtazapine 45 mg PO BEDTIME naproxen 500 mg PO BID PRN 10 days zolpidem 5 mg PO BEDTIME PRN PFSH Medical History Benign tumor Depression Hypercholesteremia Hypertension No known health problems Social History Patient Tobacco Use Status: Current everyday Tobacco user Tobacco use type: Cigarette Cigarettes Per Day: 3 Physical Exam Vital Signs: BMI result Body Mass Index 23.4 Const Other: Well-nourished well-developed very friendly female awake alert and oriented x3 in no acute distress Extrem Other: Bilateral lower extremity examination shows good capillary refill, no skin lesions noted, normal sensation light touch Left knee examination shows a minimal effusion, minimal crepitus with range of motion, tenderness along her medial joint line, positive Kirstin's test, no instability Results Reviewed Results Reviewed: Standing full weight-bearing x-rays of the patient's left knee show minimal diffuse joint space narrowing, no acute bony abnormalities Assessment & Plan Assessment & Plan (1) Left knee pain: Code(s): M25.562 - Pain in left knee Plan Ms. Mak presents with progressively worsening left knee pain and mechanical symptoms most likely due to a tear of her medial meniscus. I did have her fitted with a knee brace to help with her symptoms of instability. I feel that the knee brace is a medical necessity to help prevent future falls. I will also send her for an MRI of her left knee for further evaluation. I will see her back once the MRI is completed to discuss the findings and treatment options. Feel free to call me at any time should questions regarding her orthopedic management arise. Thank you very much for asking me to see this very friendly patient. I spent 22 minutes in reviewing the patient's records and imaging studies, seeing the patient and documenting in the medical record. Orders: Orders MR knee LT wo con Today M25.562 - Pain in left knee Medications: New meloxicam 15 mg PO DAILY PRN 30 tabs 2RF pain Coding Level of Care Code Est Pt Level 2 (01889) Diagnoses Left knee pain M25.562
[2023-04-21 11:10] VITALS: BMI 23.4
== END 2023-04-21 11:24 | disposition home or self-care (01) ==
PROVIDERS: PCP Nurse Practitioner Primary Care; Visit Provider Orthopaedic Surgery
DX: M25.562 Pain in left knee (principal)
CPT/HCPCS: 99212

== ENCOUNTER → 2023-04-21 10:12 | Outpatient (BNVA) | payer MEDICARE, MEDICAID, SELFPAY | PROVIDERS: PCP Nurse Practitioner Primary Care; Visit Provider Orthopaedic Surgery | DX: M25.562 Pain in left knee (principal) | CPT/HCPCS: 99212 ==

== ENCOUNTER 2024-01-18 08:58 | Outpatient (REF) | payer MEDICARE, MEDICAID, SELFPAY ==
--- NOTE | ~2024-01-18 | US_ITS ---
EXAMINATION: US RETROPERITONEAL COMPLETE (RENAL) CLINICAL INFORMATION: Other microscopic hematuria. COMPARISON: CT kidney stone 10/27/2022. TECHNIQUE: Real-time imaging of the kidneys and bladder. FINDINGS: RIGHT KIDNEY: 10.1 x 3.5 x 4.8 cm (SAG x AP x TRV). The kidney is normal in size, contour, and echogenicity. Renal cortical thickness is normal. No focal parenchymal lesions. No hydronephrosis. Echogenic nonshadowing foci are noted in the right kidney potentially representing calculi. LEFT KIDNEY: 10.9 x 4.0 x 4.5 cm (SAG x AP x TRV). The kidney is normal in size, contour, and echogenicity. Renal cortical thickness is normal. No focal parenchymal lesions. No hydronephrosis. Echogenic nonshadowing foci are noted in the left kidney statistically representing nonshadowing calculi. BLADDER: Well distended and normal. Bilateral ureteral jets are demonstrated. Prevoid bladder volume is 474.3 mL. Postvoid bladder volume is 4.9 mL. ADDITIONAL FINDINGS: Incidental note is made of a simple appearing cystic focus in the spleen measuring up to 1.6 cm. US/US retroperitoneal comp IMPRESSION: 1. Bilateral echogenic nonshadowing foci in the kidneys statistically representing nonshadowing calculi, without hydronephrosis. 2. Postvoid bladder volume of 4.9 mL with visualization of the bilateral ureteral jets. 3. Incidental note is made of a simple appearing cystic focus in the spleen measuring up to 1.6 cm. Electronically signed by: Logan Beckman MD 02/04/2024 11:03 AM EDT
== END 2024-01-18 08:59 | disposition home or self-care (01) ==
LOC: HO.US 08:58
PROVIDERS: PCP Nurse Practitioner Primary Care; Visit Provider Nurse Practitioner Family
DX: R31.29 Other microscopic hematuria (principal)
CPT/HCPCS: 76770

== ENCOUNTER 2024-03-20 08:58 | Outpatient (REF) | payer MEDICARE, MEDICAID, SELFPAY ==
--- NOTE | ~2024-03-20 | MM_ITS ---
EXAMINATION: BONE DENSITOMETRY CLINICAL INDICATION: Postmenopausal. COMPARISON: Baseline BD dated 02/09/2022. TECHNIQUE: Using a [employer] DXA System (software version: 13.1) manufactured by [employer], dual-energy x-ray absorptiometry was performed of the lumbar spine and left hip. The images are of good technical quality. Summary results are attached. FINDINGS: LEFT FEMUR, NECK: Current: BMD 0.797 g/cm2, Z-score 0.1, T-score -1.7, osteopenia. Baseline: BMD 0.749 g/cm2. LEFT FEMUR, TOTAL: Current: BMD 0.756 g/cm2, Z-score -0.3, T-score -2.0, osteopenia, 0.3% decrease from baseline (<5% change is not significant). Baseline: BMD 0.758 g/cm2. AP SPINE L1-L4: Current: BMD 1.100 g/cm2, Z-score 1.3, T-score -0.7, normal, 5.1% increase from baseline (<5% change is not significant). Baseline: BMD 1.047 g/cm2. IDENTIFIED RISK FACTORS: Early menopause, secondary osteoporosis, current smoker, low calcium intake. HISTORY OF FRACTURE: Other. MEDICATIONS: None listed. MM/XR DEXA axial skeleton IMPRESSION: 1. DIAGNOSIS: Osteopenia based on the lowest T-score value of -2.0 in the total femur applying World Health Organization criteria. 2. 10-YEAR FRACTURE RISK PREDICTION, FRAX: Major osteoporotic fracture (clinical spine, forearm, hip or shoulder) 5.8%. Hip fracture 1.5%. 3. Treatment Recommendations: NOF guidelines recommend consideration for treatment in postmenopausal women and men age 50 and older presenting with the following: -A hip or vertebral (clinical or morphometric) fracture. -T-score less than or equal to -2.5 at the femoral neck or spine after appropriate evaluation to exclude secondary causes. -Low bone mass at the hip or spine and a 10-year fracture probability by FRAX of greater than or equal to 3% for hip fracture or greater than or equal to 20% for major osteoporotic fracture based on the [place] adapted WHO algorithm. 4. Other Recommendations: All treatment decisions require clinical judgment and consideration of individual patient factors, including patient preferences, comorbidities, previous drug use, risk factors not captured in the FRAX model (e.g. frailty, falls, vitamin D deficiency, increased bone turnover, interval significant decline in bone density) and possible under or overestimation of fracture risk by FRAX. Additional medical evaluation for secondary cause of low bone mineral density may be appropriate. FUTURE SCAN RECOMMENDATION: People with diagnosed cases of osteoporosis or at high risk for fracture should have regular bone mineral density tests. For patients eligible for Medicare, routine testing is allowed once every 2 years. The testing frequency can be increased to one year for patients who have rapidly progressing disease, those who are receiving or discontinuing medical therapy to restore bone mass, or have additional risk factors. Electronically signed by: Nayana Marroquin MD 03/21/2024 09:21 AM EDT RP
== END 2024-03-20 08:59 | disposition home or self-care (01) ==
LOC: HO.MAMMO 08:58
PROVIDERS: PCP Internal Medicine; Visit Provider Internal Medicine
DX: Z13.820 Encounter for screening for osteoporosis (principal); Z78.0 Asymptomatic menopausal state
CPT/HCPCS: 77080

== ENCOUNTER 2024-03-22 10:23 | Outpatient (AMB) | payer MEDICARE, MEDICAID, SELFPAY ==
--- NOTE | 2024-03-22 10:31 | A.OFFVIS_ITS ---
Intake Visit Reasons: follow up/US(set) Intake Note: Patient presents today for follow up on: microscopic hematuria Urology Medications: none Blood Thinner: aspirin Breaker Unit Assembler Required: No Accompanied by: Self / Same As Patient Allergies Iodinated Contrast Media [IV Dye, Iodine Containing] Allergy (Unknown, Verified 03/22/24 21:14) Anaphylaxis Medication List - Last Reconciled 03/22/24 by MILENA Mejia- aspirin 81 mg PO DAILY atorvastatin 10 mg PO DAILY buspirone 10 mg PO TID clonazepam 0.5 mg PO BID PRN cyclobenzaprine 10 mg PO Q8H lisinopril 10 mg PO DAILY meloxicam 15 mg PO DAILY PRN mirtazapine 45 mg PO BEDTIME naproxen 500 mg PO BID PRN 10 days zolpidem 5 mg PO BEDTIME PRN HPI Comments Details: Dot is a very pleasant 69-year-old female patient of Dr. Prince. She has a PMH of depression, hypercholesteremia, and hypertension. She presents to the office today for a follow-up of her microscopic hematuria. Of note, patient is status post cystoscopy bilateral retrograde in the OR with Dr. Billy on 11/09/22 for microscopic hematuria in the setting of nicotine dependence. Patient with an allergy to iodine contrast therefore unable to obtain CT urogram for further assessment evaluation. Urine cytology 10/26 Negative for high-grade urothelial carcinoma, 12/26 Few atypical urothelial cells. Findings of cystoscopy bilateral retrogrades with no suspicious bladder lesions, bilateral retrogrades, no filling defects, ureters and renal pelvis. When asked patient reports to be doing and feeling well. She continues smoking 1-2 cigarettes daily. In office urinalysis results reviewed with the patient today 2+ microscopic hematuria otherwise within normal limits. Recent renal imaging results reviewed with the patient today 01/27 bilateral echogenic nonshadowing foci in the kidneys possibly representing nonshadowing calculi without hydronephrosis. Postvoid bladder volume is a proximally 5 mL with visualization of bilateral ureteral jets. Discussed at length importance of limiting/quitting cigarette smoking for overall health and well-being. She otherwise denies any urinary issues or concerns at this time. When asked she denies urinary urgency, urinary frequency, incontinence, nocturia, hematuria, dysuria, foul smelling urine, moon ges to urinary stream, flank pain, fever, and or chills. She is happy with her current voiding parameters. We discussed repeat cystoscopy with bilateral retrogrades verses in office cystoscopy given patient continues with microscopic hematuria in the setting of nicotine dependence. She otherwise offers no other issues or concerns at this time. [facility] Medical History Benign tumor Depression Hypercholesteremia Hypertension No known health problems Social History Patient Tobacco Use Status: Current everyday Tobacco user Tobacco use type: Cigarette Cigarettes Per Day: 3 Review of Systems Const All systems reviewed & are unremarkable except as noted in HPI and below Reports no additional complaints Eyes Reports no additional complaints ENT Reports no additional complaints Card Reports as per HPI Resp Reports no additional complaints GI Reports no additional complaints Reports as per HPI Musc Reports no additional complaints Neuro Reports no additional complaints Psych Reports as per HPI Endo Reports no additional complaints Ishan/Lymph Reports no additional complaints Aller/Immun Reports no additional complaints Physical Exam Const General: cooperative, healthy appearing, comfortable, no acute distress, well developed, alert and awake Orientation/consciousness: patient oriented x3 Limitations: no limitations HEENT Head: Yes normal to inspection, Yes normocephalic and Yes atraumatic Ears: hearing grossly normal bilaterally Eyes General: appearance normal, both eyes and all related structures Neck Neck: Yes normal visual inspection and Yes trachea midline Chest Chest palpation & inspection: normal inspection of the chest Resp Effort & Inspection: normal respiratory effort and able to speak in complete sentences Cardio Rate: regular rate GI Inspection: Yes normal to inspection General: Yes no CVA tenderness Back/Spine/Pelvis Back: no CVA tenderness Skin General skin exam: no rashes or lesions noted Neuro General: patient oriented x3 Extrem General: Yes normal to inspection Psych Appearance: grossly normal and well kempt Mental Status: mental status grossly normal Speech and movement: Normal speech and movement present and Clear speech present Affect: normal affect Attitude: cooperative Thought process: Normal thought process present Thought content: Normal thought content present Insight: Fair insight present (Psych) Judgement: Fair judgement present (Psych) Results AMB Urinalysis, Automated UA Leukoctes 0 Matthias/uL Last Edit by [employer] on 03/22/24 10:46 UA Nitrite Last Edit by [employer] on 03/22/24 10:46 UA Urobilinogen 0.2 mg/dL Last Edit by [employer] on 03/22/24 10:46 UA Protein 15 mg/dL Last Edit by [employer] on 03/22/24 10:46 UA pH 6.0 Last Edit by [employer] on 03/22/24 10:46 UA Blood 80 Bubba/uL Last Edit by [employer] on 03/22/24 10:46 UA Specific Bradley 1.010 Last Edit by [employer] on 03/22/24 10:46 UA Ketone Last Edit by [employer] on 03/22/24 10:46 UA Bilirubin 0 mg/dL Last Edit by [employer] on 03/22/24 10:46 UA Glucose 0 mg/dL Last Edit by [employer] on 03/22/24 10:46 Results Reviewed Results Reviewed: Laboratory Last Values Urine pH (Auto) 6.0 03/22/24 10:38 Specific Bradley (Auto) 1.010 03/22/24 10:38 Urine Protein (Auto) 15 mg/dL 03/22/24 10:38 Glucose (UA)(Auto) 0 mg/dL 03/22/24 10:38 Urine Blood (Auto) 80 Bubba/uL 03/22/24 10:38 Urine Bilirubin (Auto) 0 mg/dL 03/22/24 10:38 Urine Urobilinogen (Auto) 0.2 mg/dL 03/22/24 10:38 Leukocyte Esterase (Auto) 0 Matthias/uL 03/22/24 10:38 Date of Service: 01/18/24 EXAMINATION: US RETROPERITONEAL COMPLETE (RENAL) FINDINGS: RIGHT KIDNEY: 10.1 x 3.5 x 4.8 cm (SAG x AP x TRV). The kidney is normal in size, contour, and echogenicity. Renal cortical thickness is normal. No focal parenchymal lesions. No hydronephrosis. Echogenic nonshadowing foci are noted in the right kidney potentially representing calculi. LEFT KIDNEY: 10.9 x 4.0 x 4.5 cm (SAG x AP x TRV). The kidney is normal in size, contour, and echogenicity. Renal cortical thickness is normal. No focal parenchymal lesions. No hydronephrosis. Echogenic nonshadowing foci are noted in the left kidney statistically representing nonshadowing calculi. BLADDER: Well distended and normal. Bilateral ureteral jets are demonstrated. Prevoid bladder volume is 474.3 mL. Postvoid bladder volume is 4.9 mL. ADDITIONAL FINDINGS: Incidental note is made of a simple appearing cystic focus in the spleen measuring up to 1.6 cm. IMPRESSION: 1. Bilateral echogenic nonshadowing foci in the kidneys statistically representing nonshadowing calculi, without hydronephrosis. 2. Postvoid bladder volume of 4.9 mL with visualization of the bilateral ureteral jets. 3. Incidental note is made of a simple appearing cystic focus in the spleen measuring up to 1.6 cm. Assessment & Plan Assessment & Plan (1) Microscopic hematuria: Code(s): R31.29 - Other microscopic hematuria Category: Medical (2) Nicotine dependence: Code(s): F17.200 - Nicotine dependence, unspecified, uncomplicated Category: Medical (3) Nephrolithiasis: Code(s): N20.0 - Calculus of kidney Category: Medical Plan In office urinalysis results reviewed with the patient today; as noted above; will send for urine cytology. Recent retroperitoneal ultrasound results reviewed with the patient today; as noted above. Discussed, educated, and stressed the importance of quitting/limiting nicotine dependence for overall health and well-being. Discussed repeat cystoscopy with bilateral retrograde and or in office cystoscopy; this was discussed at length. Will continue with surveillance monitoring at this time per patient request. She currently denies any bothersome urinary issues or concerns. She reports be happy with current voiding parameters. Discussed, educated, and stressed the importance of adequate hydration relation to nephrolithiasis as well as overall health and well-being. Discussed adding 1 oz of lemon juice to water daily. Follow-up in 6 months; or sooner with any issues, concerns, and or questions. Orders: Orders AMB Urinalysis Automated Today Z13.9 - Encounter for screening, unspecified Urine Cytology Today R31.29 - Other microscopic hematuria Patient Instructions: The patient had an opportunity to ask questions regarding the treatment plan. All questions were answered. Physical exam, labs, and imaging were discussed and reviewed in detail. As well as risks, benefits, and discussion of treatment choices. No major barriers to understanding were identified. The patient expressed understanding and agreement with the above treatment plan. The patient was made aware they should contact our office by phone for worsening of their current condition, the appearance of new symptoms, or with any questions or concerns. Compliance is encouraged with any medications and follow up testing that is ordered. It is a privilege to be allowed the opportunity to participate in? your urological care.? Again, if you have any questions or concerns If you have any questions or concerns please do not hesitate to contact me. The office is [phone]. This note is constructed using voice recognition software. While every effort has been made to ensure accuracy beef skinner errors may have been included. Yours sincerely, LETTY Mejia Coding Level of Care Code Est Pt Level 3 (55180) Complex EM visit Add On G2211 Diagnoses Microscopic hematuria R31.29 Nicotine dependence F17.200 Nephrolithiasis N20.0
== END 2024-03-22 11:07 | disposition home or self-care (01) ==
PROVIDERS: PCP Internal Medicine; Visit Provider Nurse Practitioner Family
DX: R31.29 Other microscopic hematuria (principal); F17.200 Nicotine dependence, unspecified, uncomplicated; N20.0 Calculus of kidney; Z13.9 Encounter for screening, unspecified
CPT/HCPCS: 99213; G2211

== ENCOUNTER 2024-05-31 09:41 | Emergency (ER) | payer MEDICARE, MEDICAID, SELFPAY ==
--- NOTE | ~2024-05-31 | CT_ITS ---
EXAMINATION: CT ABDOMEN AND PELVIS WITHOUT CONTRAST CLINICAL INFORMATION: Rectal bleeding, left lower quadrant abdominal pain. COMPARISON: Noncontrast CT abdomen and pelvis 10/27/2022. TECHNIQUE: Multidetector volumetric imaging was performed from the superior aspect of the liver through the pubic symphysis. Sagittal and coronal reformatted images were obtained on the technologist's workstation. This CT examination was performed using dose optimization techniques as appropriate, variously including the following: *Automated exposure control *Adjustment of mA and/or kV according to patient size (this includes techniques or standardized protocols for targeted exams where dose is matched to indication/reason for exam; i.e. extremities or head) *Use of iterative reconstruction technique DLP: 340 mGy-cm FINDINGS: LUNG BASES: The visualized lung bases are unremarkable. LIVER, GALLBLADDER, AND BILIARY TREE: The liver is normal in size, shape, and attenuation. Tiny 5 mm cyst in segment 3, and 5 mm cyst in segment 8. No additional focal hepatic lesion. No biliary ductal dilatation is present. The gallbladder is unremarkable with no evidence of radiopaque gallstones, gallbladder wall thickening, or obvious pericholecystic inflammatory changes. PANCREAS: Unremarkable. SPLEEN: There is a stable 1.4 cm cyst in the mid spleen, unchanged from 2022 and benign. This is likely an acquired benign cyst. ADRENAL GLANDS: Unremarkable. KIDNEYS AND URETERS: The kidneys are normal in size, shape, and attenuation. No hydronephrosis, hydroureter, or calculi seen. No perinephric stranding. BLADDER: Unremarkable. GASTROINTESTINAL TRACT: -Mild diverticulosis of the descending and sigmoid colon. -Inflammation of the mid descending colon with mild associated wall thickening, and pericolonic inflammation consistent with acute diverticulitis. There is no abscess or complication. There is no extraluminal gas. -No additional abnormal findings of the GI tract. -The appendix is normal. PERITONEUM: Trace ascites in the pelvic recesses. No free air. ABDOMINAL WALL: No significant hernia is appreciated. LYMPH NODES: Normal. VASCULAR: -No aneurysm. There is moderate degree of calcific atherosclerosis of the aorta and iliac arteries. PELVIC VISCERA: -Normal senescent uterus. No adnexal masses. OSSEOUS STRUCTURES: -No suspicious lytic or blastic bone lesions identified. -There are mild degenerative spinal changes, and minimal degenerative hip joint changes. CT/CT abdomen pelvis wo IV con IMPRESSION: 1. Acute diverticulitis identified involving the mid descending colon, with associated wall thickening and pericolonic inflammatory changes. No complication, extraluminal gas, or abscess. There is otherwise only mild diverticulosis of the descending and sigmoid colon. 2. Trace free fluid in the pelvis is likely secondary to the process in the descending colon. 3. No additional acute findings. 4. Stable Ancillary findings as discussed. Electronically signed by: Natalio Horan MD 05/31/2024 12:03 PM [place]
[2024-05-31 10:12] VITALS: BP 97/69; PULSE 105; RESP 16; TEMP 36.9; O2SAT 98; BMI 21.1
--- NOTE | 2024-05-31 10:40 | ED.ABDPAIN ---
HPI - Abdominal Pain General Chief Complaint: Abdominal Pain Stated Complaint: l side pain Time Seen by Provider: 05/31/24 10:29 Source: patient, RN notes reviewed and old records reviewed Mode of arrival: ambulatory History of Present Illness ED Provider: Alison Sargent PA-C HPI narrative: 69-year-old female with a past medical history of depression, HLD, HTN, presenting to the ED complaining of left lower quadrant abdominal pain x1 week with associated light red bloody stools and passing clots. Denies fever, chills, anticoagulation use, nausea, vomiting, constipation, dysuria/hematuria. Has been taking Tylenol with relief. Related Data Home Medications ?Medication ?Instructions ?Recorded ?Confirmed aspirin 81 mg tablet,delayed 81 mg PO DAILY 10/13/22 04/21/23 release atorvastatin 10 mg tablet 10 mg PO DAILY 10/13/22 04/21/23 buspirone 10 mg tablet 10 mg PO TID 10/13/22 04/21/23 clonazepam 0.5 mg tablet 0.5 mg PO BID PRN Anxiety 10/13/22 04/21/23 lisinopril 10 mg tablet 10 mg PO DAILY 10/13/22 04/21/23 mirtazapine 45 mg tablet 45 mg PO BEDTIME 10/13/22 04/21/23 zolpidem 5 mg tablet 5 mg PO BEDTIME PRN Insomnia 10/13/22 04/21/23 Previous Rx's ?Medication ?Instructions ?Recorded cyclobenzaprine 10 mg tablet 10 mg PO Q8H Muscle spasm #10 tabs 02/24/21 naproxen 500 mg tablet 500 mg PO BID PRN pain 10 days #20 07/02/21 tabs meloxicam 15 mg tablet 15 mg PO DAILY PRN pain #30 tabs 04/21/23 Allergies Allergy/AdvReac Type Severity Reaction Status Date / Time Iodinated Contrast Media Allergy Unknown Anaphylaxis Verified 05/31/24 10:17 [IV Dye, Iodine Containing] Review of Systems Review of Systems Yes all other systems are reviewed and are negative Constitutional: Reports as per HPI [facility] Past Medical History Attestation statement: The following information was validated with the patient. Source: old records reviewed Medical History Benign tumor Depression Hypercholesteremia Hypertension No known health problems Social History Social History Patient Tobacco Use Status: Current everyday Tobacco user Tobacco use type: Cigarette Cigarettes Per Day: 3 Smoked in Last 30 Days: No Use of substances other than those prescribed or required for medical reasons: Yes Substance Use Type: Marijuana Substance Use Frequency: Occasionally Advance Directives: No Advance Directives Information Provided: Yes Do you have a plan to hurt others: No Plan Physical Exam ED Vital Signs: Vital Signs - 24 hr 05/31/24 10:12 05/31/24 10:56 05/31/24 13:52 Temperature 98.4 F 98.3 F Pulse Rate 105 H 90 Respiratory Rate 16 18 18 Blood Pressure 97/69 111/64 Pulse Oximetry 98 96 Oxygen Delivery Method Room Air Room Air BMI result Body Mass Index 21.1 Const General: cooperative, healthy appearing and no acute distress Orientation/consciousness: patient oriented x3 Limitations: no limitations HENMT Head: Yes normal to inspection and Yes atraumatic Ears: hearing grossly normal bilaterally General nose exam: Normal external nose present Face and sinus: Yes normal facial exam Eyes General: appearance normal, both eyes and all related structures EOM: EOMs intact bilaterally Neck Neck: Yes normal visual inspection and Yes no meningeal signs Resp Effort & Inspection: normal respiratory effort and no respiratory distress Auscultation: clear to auscultation bilaterally Cardio Rate: regular rate Heart sounds: S1 normal heart sound present and S2 normal heart sound present GI Inspection: Yes normal to inspection Palpation (GI): Soft to palpation, Tenderness to palpation present (GI) in the LLQ; with no rebound tenderness, no guarding and not rigid Rectal Exam - Female: External hemorrhoid(s) present (Without active bleeding or thrombosis) General: Yes no CVA tenderness Back/Spine/Pelvis Back: no CVA tenderness Skin Rashes: no rashes Wounds: no wounds Neuro General: patient oriented x3, tone normal and no meningeal signs Cranial nerves: Yes CN's II-XII intact bilaterally Gait exam (Neuro): Normal gait present Extrem General: Yes normal to inspection Course Course Course Narrative: - 1136--no leukocytosis. H/H with slight drop to 11.4/35.8 > will obtain repeat. - Occult stool positive - labs otherwise reassuring CT abdomen pelvis wo IV con IMPRESSION: 1. Acute diverticulitis identified involving the mid descending colon, with associated wall thickening and pericolonic inflammatory changes. No complication, extraluminal gas, or abscess. There is otherwise only mild diverticulosis of the descending and sigmoid colon. 2. Trace free fluid in the pelvis is likely secondary to the process in the descending colon. 3. No additional acute findings. 4. Stable Ancillary findings as discussed. >1317--repeat H/H with slight drop to 10.6/33.2 > likely dilutional. Will obtain additional 1 hour repeat. Will give IV fentanyl for pain control & 1st dose PO Augmentin with anticipated discharge. Patient denies any bloody BMs or melena since ED arrival. -1408--3rd repeat H/H stable. Patient is safe for discharge home at this time. Will discharge home with Augmentin and GI follow-up. Results discussed with patient including worrisome signs and symptoms and strict return precautions, and when to return to the emergency department. They verbalized understanding and feel safe for discharge at this time. Medical Decision Making Medical Decision Making [facility] Narrative: 69-year-old female with a past medical history of depression, HLD, HTN, presenting to the ED complaining of left lower quadrant abdominal pain x1 week with associated light red bloody stools and passing clots. On tachycardic, NAD, abdomen soft with left lower quadrant tenderness, external hemorrhoids appreciated on rectal with dark red stool. Concern for diverticulitis vs GI bleed. Rule out anemia. Rule out other infectious etiology. Lower suspicion for cholecystitis/lithiasis or pancreatitis at this time. Plan: Labs, occult stool, CT AP, IVF, re-evaluate Please refer to course for remaining clinical decision making, interpretation of labs/imaging results, and discussions with consultants and/or family members. Differential Diagnosis Differential Diagnoses: The differential diagnosis associated with the presentation includes As above Admission/Observation Consideration of admission/observation: Escalation of care including admission/observation considered Lab Data [facility] Lab Attestation statement: I reviewed the patient's lab results. 05/31/24 13:52 05/31/24 10:49 Labs: Lab Results 05/31/24 05/31/24 05/31/24 Range/Units 10:49 10:50 12:51 WBC 6.7 6.6 (4.8-10.8) X10*3/uL RBC 4.24 3.88 L (4.20-5.50) X10*6/uL Hgb 11.4 L 10.6 L (12.0-16.0) g/dl Hct 35.8 L 33.2 L (37.0-47.0) % MCV 84.4 85.6 (80.0-98.0) fL MCH 26.9 L 27.3 (27.0-33.0) pg MCHC 31.8 31.9 (31.0-35.0) g/dl RDW 13.9 13.8 (11.0-16.0) % Plt Count 249 D 210 (160-400) X10*3/uL MPV 10.8 10.4 (9.4-12.3) fL Immature Gran % (Auto) 0.3 0.3 (0.0-0.4) % Neut % (Auto) 76.8 H 71.8 (45-73) % Lymph % (Auto) 14.0 L 18.6 L (20-40) % Snyder % (Auto) 5.4 5.9 (2-11) % Eos % (Auto) 2.9 2.9 (0-4) % Baso % (Auto) 0.6 0.5 (0-2) % Lymph # (Auto) 0.9 L 1.2 (1.2-4.9) X10*3/uL Snyder # (Auto) 0.4 0.4 (0.1-1.2) X10*3/uL Eos # (Auto) 0.2 0.2 (0.0-0.4) X10*3/uL Baso # (Auto) 0.0 0.0 (0.0-0.2) X10*3/uL Abs Immat Gran (auto) 0.02 0.02 (0.00-0.03) X10*3/uL Absolute Neuts (auto) 5.1 4.7 (2.0-8.3) x10*3/uL Absolute Nucleated RBC 0.000 0.000 (0.0-0.012) X10*3/uL Nucleated RBC % (auto) 0.0 0.0 (0.0-0.2) /100WBC PT 11.5 (10.9-12.4) SEC INR 1.0 (0.9-1.1) Sodium 142 (135-145) mmol/L Potassium 3.6 (3.3-5.1) mmol/L Chloride 105 (96-108) mmol/L Carbon Dioxide 28 (22-29) mmol/L Anion Gap 13 (12-20) BUN 8 L (9-16) mg/dL Creatinine 0.81 (0.5-1.4) mg/dL Estim Creat Clear Calc 54.1 Estimated GFR > 60 Random Glucose 112 (60-115) mg/dL Calcium 9.9 (8.4-10.2) mg/dL Magnesium 2.0 (1.6-2.6) mg/dL Total Bilirubin 0.2 (0.0-1.0) mg/dL Direct Bilirubin < 0.2 (0.0-0.5) mg/dL AST 19 (5-31) U/L ALT 23 (0-31) U/L Alkaline Phosphatase 87 (39-117) U/L Total Protein 6.9 (6.5-8.0) g/dL Albumin 4.0 (3.5-5.0) g/dL Lipase 10 (8-78) U/L Stool Occult Blood POSITIVE (NEGATIVE) 05/31/24 Range/Units 13:52 WBC 6.2 (4.8-10.8) X10*3/uL RBC 3.92 L (4.20-5.50) X10*6/uL Hgb 10.8 L (12.0-16.0) g/dl Hct 33.6 L (37.0-47.0) % MCV 85.7 (80.0-98.0) fL MCH 27.6 (27.0-33.0) pg MCHC 32.1 (31.0-35.0) g/dl RDW 14.0 (11.0-16.0) % Plt Count 212 (160-400) X10*3/uL MPV 10.2 (9.4-12.3) fL Immature Gran % (Auto) 0.5 H (0.0-0.4) % Neut % (Auto) 72.8 (45-73) % Lymph % (Auto) 17.6 L (20-40) % Snyder % (Auto) 5.3 (2-11) % Eos % (Auto) 3.2 (0-4) % Baso % (Auto) 0.6 (0-2) % Lymph # (Auto) 1.1 L (1.2-4.9) X10*3/uL Snyder # (Auto) 0.3 (0.1-1.2) X10*3/uL Eos # (Auto) 0.2 (0.0-0.4) X10*3/uL Baso # (Auto) 0.0 (0.0-0.2) X10*3/uL Abs Immat Gran (auto) 0.03 (0.00-0.03) X10*3/uL Absolute Neuts (auto) 4.5 (2.0-8.3) x10*3/uL Absolute Nucleated RBC 0.000 (0.0-0.012) X10*3/uL Nucleated RBC % (auto) 0.0 (0.0-0.2) /100WBC PT (10.9-12.4) SEC INR (0.9-1.1) Sodium (135-145) mmol/L Potassium (3.3-5.1) mmol/L Chloride (96-108) mmol/L Carbon Dioxide (22-29) mmol/L Anion Gap (12-20) BUN (9-16) mg/dL Creatinine (0.5-1.4) mg/dL Estim Creat Clear Calc Estimated GFR Random Glucose (60-115) mg/dL Calcium (8.4-10.2) mg/dL Magnesium (1.6-2.6) mg/dL Total Bilirubin (0.0-1.0) mg/dL Direct Bilirubin (0.0-0.5) mg/dL AST (5-31) U/L ALT (0-31) U/L Alkaline Phosphatase (39-117) U/L Total Protein (6.5-8.0) g/dL Albumin (3.5-5.0) g/dL Lipase (8-78) U/L Stool Occult Blood (NEGATIVE) Radiology Impression Discussion of test interpretation with radiology: I have reviewed the radiologist's reading. External Record Review External record reviewed: Inpatient record, Office record, Outpatient record, Prior outpatient labs, Prior outpatient radiology, Primary care record and Outside ED record Tests considered The following testing was considered but not selected: As above Prescription Management I considered prescription management with: Other Chronic Conditions Patient?s care impacted by: Other Social Determinants Patient?s care significantly limited by Social Determinants of Health including: Other Social Determinant of Health Medications Administered Discontinued Medications Generic Name Dose Route Start Last Admin Trade Name Freq PRN Reason Stop Dose Admin Amoxicillin/Clavulanate Potassium 875 mg 05/31/24 13:16 05/31/24 13:52 Amoxicillin/Potassium Clav 875 Mg Tablet PO 05/31/24 13:17 875 mg ONCE ONE Administration Fentanyl 25 mcg 05/31/24 13:15 05/31/24 13:52 Fentanyl Citrate/Pf 100 Mcg/2 Ml Vial IVPUSH 05/31/24 13:16 25 mcg ONCE ONE Administration Protocol Sodium Chloride 1,000 mls @ 999 mls/hr 05/31/24 10:45 05/31/24 12:22 Ns IV 05/31/24 11:45 Infused .Q1H1M MARVIN Infusion Discharge Plan Discharge Clinical Impression: Acute diverticulitis Patient Disposition: Still a Patient Instructions: Diverticulitis (ED), Diverticulitis Diet (ED) Prescriptions: No Action cyclobenzaprine 10 mg tablet 10 mg PO Q8H Qty: 10 0RF naproxen 500 mg tablet 500 mg PO BID PRN (Reason: pain) 10 Days Qty: 20 0RF mirtazapine 45 mg tablet 45 mg PO BEDTIME buspirone 10 mg tablet 10 mg PO TID zolpidem 5 mg tablet 5 mg PO BEDTIME PRN (Reason: Insomnia) lisinopril 10 mg tablet 10 mg PO DAILY atorvastatin 10 mg tablet 10 mg PO DAILY aspirin 81 mg tablet,delayed release (DR/EC) 81 mg PO DAILY clonazepam 0.5 mg tablet 0.5 mg PO BID PRN (Reason: Anxiety) meloxicam 15 mg tablet 15 mg PO DAILY PRN (Reason: pain) Qty: 30 2RF Print Language: Faroese
[2024-05-31] MEDS: 0.9 % Sodium Chloride 1,000 ML 999 ML IV (10:53)
[2024-05-31 10:56] VITALS: BP 111/64; PULSE 90; RESP 18; TEMP 36.8; O2SAT 96
[2024-05-31 11:02] LABS: MANUAL DIFF FLAG NO
[2024-05-31 11:04] LABS: OBS Int Ctl Valid YES; OBS1 POSITIVE (NEGATIVE)
[2024-05-31 11:04] LABS: Basophils Percent Auto 0.6 % (0-2); Eosinophils Absolute Auto 0.2 X10*3/uL (0.0-0.4); Eosinophils Percent Auto 2.9 % (0-4); Hematocrit 35.8 % (37.0-47.0); Hemoglobin 11.4 g/dl (12.0-16.0); Imm Gran Abs Auto 0.02 X10*3/uL (0.00-0.03); Imm Gran Pct Auto 0.3 % (0.0-0.4); Lymphocytes Absolute Auto 0.9 X10*3/uL (1.2-4.9); Mean Corpuscular HGB Conc 31.8 g/dl (31.0-35.0); Mean Corpuscular Hemoglobin 26.9 pg (27.0-33.0); Mean Corpuscular Volume 84.4 fL (80.0-98.0); Mean Platelet Volume 10.8 fL (9.4-12.3); Monocytes Absolute Auto 0.4 X10*3/uL (0.1-1.2); Monocytes Percent Auto 5.4 % (2-11); Neutrophils Absolute Auto 5.1 x10*3/uL (2.0-8.3); Neutrophils Percent Auto 76.8 % (45-73); Platelet Count 249 X10*3/uL (160-400); Red Blood Count 4.24 X10*6/uL (4.20-5.50); Red Cell Distribution Width 13.9 % (11.0-16.0); White Blood Count 6.7 X10*3/uL (4.8-10.8)
[2024-05-31 11:13] LABS: Prothrombin Time 11.5 SEC (10.9-12.4)
[2024-05-31 11:33] LABS: Alanine Aminotransferase 23 U/L (0-31); Anion Gap 13 (12-20); Aspartate Amino Transferase 19 U/L (5-31); Bilirubin Direct < 0.2 mg/dL (0.0-0.5); Bilirubin Total 0.2 mg/dL (0.0-1.0); Blood Urea Nitrogen 8 mg/dL (9-16); Calcium 9.9 mg/dL (8.4-10.2); Carbon Dioxide 28 mmol/L (22-29); Chloride 105 mmol/L (96-108); Creatinine Clr Calc Pharmacy 54.1; Estimated Glomerular Filt Rate > 60; Glucose Random 112 mg/dL (60-115); Lipase 10 U/L (8-78); Potassium 3.6 mmol/L (3.3-5.1); Sodium 142 mmol/L (135-145); Total Protein 6.9 g/dL (6.5-8.0)
[2024-05-31 11:54] LABS: Alkaline Phosphatase 87 U/L (39-117)
[2024-05-31 12:55] LABS: MANUAL DIFF FLAG NO
[2024-05-31 12:58] LABS: Basophils Percent Auto 0.5 % (0-2); Eosinophils Absolute Auto 0.2 X10*3/uL (0.0-0.4); Eosinophils Percent Auto 2.9 % (0-4); Hematocrit 33.2 % (37.0-47.0); Hemoglobin 10.6 g/dl (12.0-16.0); Imm Gran Abs Auto 0.02 X10*3/uL (0.00-0.03); Imm Gran Pct Auto 0.3 % (0.0-0.4); Lymphocytes Absolute Auto 1.2 X10*3/uL (1.2-4.9); Lymphocytes Percent Auto 18.6 % (20-40); Mean Corpuscular HGB Conc 31.9 g/dl (31.0-35.0); Mean Corpuscular Hemoglobin 27.3 pg (27.0-33.0); Mean Corpuscular Volume 85.6 fL (80.0-98.0); Mean Platelet Volume 10.4 fL (9.4-12.3); Monocytes Absolute Auto 0.4 X10*3/uL (0.1-1.2); Monocytes Percent Auto 5.9 % (2-11); Neutrophils Absolute Auto 4.7 x10*3/uL (2.0-8.3); Neutrophils Percent Auto 71.8 % (45-73); Platelet Count 210 X10*3/uL (160-400); Red Blood Count 3.88 X10*6/uL (4.20-5.50); Red Cell Distribution Width 13.8 % (11.0-16.0); White Blood Count 6.6 X10*3/uL (4.8-10.8)
[2024-05-31 13:52] VITALS: RESP 18
[2024-05-31] MEDS: fentaNYL citrate/PF 100 MCG/2 ML VIAL 25 MCG IVPUSH (13:52)
[2024-05-31] MEDS: Amoxicillin/Potassium Clav 875 MG TABLET PO (13:52)
[2024-05-31 13:58] LABS: MANUAL DIFF FLAG NO
[2024-05-31 14:00] LABS: Basophils Percent Auto 0.6 % (0-2); Eosinophils Absolute Auto 0.2 X10*3/uL (0.0-0.4); Eosinophils Percent Auto 3.2 % (0-4); Hematocrit 33.6 % (37.0-47.0); Hemoglobin 10.8 g/dl (12.0-16.0); Imm Gran Abs Auto 0.03 X10*3/uL (0.00-0.03); Imm Gran Pct Auto 0.5 % (0.0-0.4); Lymphocytes Absolute Auto 1.1 X10*3/uL (1.2-4.9); Lymphocytes Percent Auto 17.6 % (20-40); Mean Corpuscular HGB Conc 32.1 g/dl (31.0-35.0); Mean Corpuscular Hemoglobin 27.6 pg (27.0-33.0); Mean Corpuscular Volume 85.7 fL (80.0-98.0); Mean Platelet Volume 10.2 fL (9.4-12.3); Monocytes Absolute Auto 0.3 X10*3/uL (0.1-1.2); Monocytes Percent Auto 5.3 % (2-11); Neutrophils Absolute Auto 4.5 x10*3/uL (2.0-8.3); Neutrophils Percent Auto 72.8 % (45-73); Platelet Count 212 X10*3/uL (160-400); Red Blood Count 3.92 X10*6/uL (4.20-5.50); White Blood Count 6.2 X10*3/uL (4.8-10.8)
[2024-05-31 14:38] LABS: Appearance Urine Clear; Color Urine Yellow; Glucose Urine UA Negative (Negative); Leukocyte Esterase Urine Trace (Negative); Nitrite Urine Negative (Negative); PH 6.5 (5.0-9.0); UMIC TRIGGER UACC YES; Urine Blood Trace (Negative); Urine Ketones Negative (Negative); Urine Protein Negative (Neg-Trace)
[2024-05-31 14:42] LABS: Bacteria Urine Trace (None Seen); Hyaline Casts Urine 0-2 /LPF (0-2); RBC Urine 0-2 /HPF (0-2); WBC Urine 0-5 /HPF (0-5)
[2024-05-31 15:02] VITALS: BP 111/64; PULSE 90; RESP 18; TEMP 36.8; O2SAT 96
== END 2024-05-31 15:03 | disposition home or self-care (01) ==
PROVIDERS: Physician Assistant; Emergency Provider Emergency Medicine; PCP Nurse Practitioner Primary Care
DX: K57.32 Diverticulitis of large intestine without perforation or abscess without bleeding (principal); R10.32 Left lower quadrant pain; I10 Essential (primary) hypertension; E78.00 Pure hypercholesterolemia, unspecified; F17.210 Nicotine dependence, cigarettes, uncomplicated; F12.90 Cannabis use, unspecified, uncomplicated; Z79.82 Long term (current) use of aspirin; Z79.02 Long term (current) use of antithrombotics/antiplatelets; Z79.899 Other long term (current) drug therapy
CPT/HCPCS: 36415; 74176; 80048; 80076; 81001; 82272; 83690; 83735; 85025; 85610; 96361; 96374; 99284; J3010

== ENCOUNTER → 2024-05-31 10:36 | Outpatient (BNV) | payer MEDICARE, MEDICAID, SELFPAY | PROVIDERS: Emergency Provider Emergency Medicine; PCP Nurse Practitioner Primary Care; Visit Provider Radiology Diagnostic Radiology | DX: K57.32 Diverticulitis of large intestine without perforation or abscess without bleeding (principal); K57.30 Diverticulosis of large intestine without perforation or abscess without bleeding | CPT/HCPCS: 74176 ==

== ENCOUNTER 2025-01-14 11:43 | Outpatient (REF) | payer MEDICARE, MEDICAID, SELFPAY ==
--- OUTSIDE RECORDS SUMMARY | 2025-01-14 12:15 | XMS_ITS | Encounter Summary ---
Author Organization [employer] Address [address] [place] [address] Care Team Providers Care Drafter Topographical Name Role Phone Jeanine Prince Primary Care Provider Encounter Details Date Type Department Care Team (Late st Contact Info) Description 09/21/2024 Orders Only [facility] [address] [place], [place] [phone] Jeanine Prince ANP [address] [place], [place] [phone] Social History Tobacco Use Types Packs/Day Years Used Date Smoking Tobacco: Every Day Cigarettes Passive Smoke Exposure: Current Smokeless Tobacco: Never Alcohol Use Standard Drinks/Week Comments Yes 0 (1 standard drink = 0.6 oz pur e alcohol) Depression Answer Date Recorded Patient Health Questionnaire-9 Score 0 08/15/2023 Patient Health Questionnaire-9 Score 0 08/15/2023 Last PHQ-9: Questionnaire Data Not on file 0 08/15/2023 Housing Stability Answer Date Recorded What is your housing situation today? I have ihsan vasquez 08/08/[address] you li ve. Do you have problems with any of the following? None of the above 08/08/2023 Food Insecurity Answer Date Recorded Within the past 12 months, y ou worried that your food would run out before you got money to buy more: Sometimes True 2023 Within the past 12 months,th e food you bought just didn't last and you didn't have enough money to get more: Sometimes True 08/08/2023 Transportation Answer Date Recorded In the past 12 months, has l ack of transportation kept you from medical appts, meetings, work or from getting things needed for daily living? No 08/08/2023 Utilities Answer Date Recorded In the past 12 months, has t he electric, gas, oil or water company threatened to shut off services in your home? No 08/08/2023 Depression Answer Date Recorded Patient Health Questionnaire-2 Score 0 08/15/2023 Comments Unknown Sex and Gender Information Value Date Recorded Sex Assigned at Female 04/05/2022 10:26 AM EDT Legal Sex Female 10:26 AM EDT Gender Identity Female 04/05/2022 10:26 AM EDT Sexual Orientation Straight 04/05/2022 10 :26 AM EDT documented as of this encounter Plan of Treatment Upcoming Encounters Date Type Department Care Team (Late st Contact Info) Description 01/14/2025 1:20 PM EDT Office Visit [facility] [address] [place] [phone] Name, MD Javad [address] [place] [phone] External hemorrhoid (Primary Dx); Rectal bleeding; Hypertension, unspecified type 02/21/2025 9:00 AM EDT Office Visit [facility] [address] [place] [phone] Jeanine Prince ANP [address] [place] [address] 05/17/2025 10:00 AM EST Office Visit [facility] [address] [place] [address] Gurwinder, Betsy, OD [address] [place] [address] documented as of this encounter Visit Diagnoses Not on filedocumented in this encounter Additional Health Concerns Assessment Noted Time PHQ-9 Depression Total Score: 0 08/15/19 24 2:24 PM EDT documented as of this encounter Care Teams Drafter Topographical Relationship Specialty Start Date End Date Jeanine Prince ANP [address] [place] [phone] PCP - General Family Medicine 03/24/21 documented as of this encounter
[2025-01-14 13:21] LABS: MANUAL DIFF FLAG NO
[2025-01-14 13:43] LABS: Hematocrit 29.8 % (37.0-47.0); Hemoglobin 8.8 g/dl (12.0-16.0); Imm Gran Abs Auto 0.02 X10*3/uL (0.00-0.03); Imm Gran Pct Auto 0.4 % (0.0-0.4); Lymphocytes Absolute Auto 1.0 X10*3/uL (1.2-4.9); Mean Corpuscular HGB Conc 29.5 g/dl (31.0-35.0); Mean Corpuscular Hemoglobin 23.5 pg (27.0-33.0); Mean Corpuscular Volume 79.5 fL (80.0-98.0); NRBC Abs Auto 0.000 X10*3/uL (0.0-0.012); NRBC Pct Auto 0.0 /100WBC (0.0-0.2); Platelet Count 349 X10*3/uL (160-400); Red Blood Count 3.75 X10*6/uL (4.20-5.50); White Blood Count 5.7 X10*3/uL (4.8-10.8)
[2025-01-14 13:45] LABS: INTERNATIONAL NORM RATIO 0.9 (0.9-1.1); Prothrombin Time 10.0 SEC (10.9-12.4)
[2025-01-14 13:47] LABS: Partial Thromboplastin Time 26.6 SEC (26.7-34.1)
[2025-01-14 14:05] LABS: Anion Gap 13 (12-20); Blood Urea Nitrogen 11 mg/dL (9-16); Calcium 9.4 mg/dL (8.4-10.2); Carbon Dioxide 24 mmol/L (22-29); Chloride 111 mmol/L (96-108); Estimated Glomerular Filt Rate > 60; Potassium 3.7 mmol/L (3.3-5.1); Sodium 144 mmol/L (135-145)
== END 2025-01-14 11:44 | disposition home or self-care (01) ==
LOC: HO.HHCL 11:43
PROVIDERS: PCP Nurse Practitioner Primary Care; Visit Provider Internal Medicine Geriatric Medicine
DX: K62.5 Hemorrhage of anus and rectum (principal)
CPT/HCPCS: 36415; 80048; 85025; 85610; 85730

== ENCOUNTER 2025-05-10 10:25 | Outpatient (REF) | payer OTHER, MEDICAID, SELFPAY ==
--- OUTSIDE RECORDS SUMMARY | 2025-05-08 15:00 | XMS_ITS | Encounter Summary ---
Author Organization [employer] Address [address] [facility] [address] [place] [address] Care Team Providers Care Multifocal Lens Inspector Name Role Phone Jeanine Prince Primary Care Provider [phone] Reason for Referral * Consultation (Urgent) - Authorized Specialty Diagnoses / Procedures Referred By Contyenny t Referred To Contact Behavioral Health Diagnoses Current moderate episode of major depressive disorder, unspecified whether recurrent (CMS/HCC) (HCC) Procedures Referral to Behavioral Health Jeanine Prince ANP [address] [place] [address] Phone: tel: fax: Referral ID Status Reason Start Date Expiration Date Visits Requested Visits Authorized [id number] Authorized Specialty Services Required 05/08/2025 05/08/2026 1 1 Reason for Visit * Reason Comments Follow-up Encounter Details Date Type Department Care Team ([facility] st Contact Info) Description 05/08/2025 3:00 PM EST Office Visit [facility] [address] [place] [phone] Jeanine Prince ANP [address] [place] [phone] Primary hypertension (Primary Dx); Cigarette nicotine dependence without complication; Encounter for immunization; Iron deficiency anemia, unspecified iron deficiency anemia type; Osteopenia, unspecified location; Dyslipidemia; Muscle cramps; Current moderate episode of major depressive disorder, unspecified whether recurrent (CMS/HCC) (HCC) Social History Tobacco Use Types Packs/Day Years Used Date Smoking Tobacco: Every Day Cigarettes Passive Smoke Exposure: Current Smokeless Tobacco: Never Tobacco Cessation:Ready to Q uit: Not Asked; Counseling Given: Not Answered Alcohol Use Standard Drinks/Week Comments Yes 0 (1 standard drink = 0.6 oz pur e alcohol) Depression Answer Date Recorded Patient Health Questionnaire-9 Score 26 05/08/2025 Patient Health Questionnaire-9 Score 26 05/08/2025 Last PHQ-9: Questionnaire Data Not on file 1 07/09/2024 Housing Stability Answer Date Recorded What is your housing situation today? I have ihsan vasquez 03/12/[address] you li ve. Do you have problems with any of the following? Pests such as bugs, ants, or mice 03/12/2025 Food Insecurity Answer Date Recorded Within the past 12 months, y ou worried that your food would run out before you got money to buy more: Never True 03/12/2025 Within the past 12 months,th e food you bought just didn't last and you didn't have enough money to get more: Never True 12/2024 Transportation Answer Date Recorded In the past 12 months, has l ack of transportation kept you from medical appts, meetings, work or from getting things needed for daily living? Yes, it has kept me from medical appointments or getting medications. 03/12/2025 Utilities Answer Date Recorded In the past 12 months, has t he electric, gas, oil or water company threatened to shut off services in your home? No 03/12/2025 Depression Answer Date Recorded Patient Health Questionnaire-2 Score 6 05/08/2025 Internet Access Answer Date Recorded Internet Access Q1 Yes 03/12/2025 Internet Access Q2 Not on file 03/12/2025 Comments Unknown Sex and Gender Information Value Date Recorded Sex Assigned at Female 04/05/2022 10:26 AM EDT Legal Sex Female 10:26 AM EDT Gender Identity Female 04/05/2022 10:26 AM EDT Sexual Orientation Straight 04/05/2022 10 :26 AM EDT documented as of this encounter Last Filed Vital Signs Vital Sign Reading Time Taken Comments Blood Pressure 150/82 05/08/2025 2:55 PM EST Pulse 83 05/08/2025 2:55 PM EST Temperature 36.3 C (97.3 F) 05/08/2025 2:55 PM EST Respiratory Rate 13 05/08/2025 2:55 PM EST Oxygen Saturation 95% 05/08/2025 2:55 PM EST Inhaled Oxygen Concentration - - Weight 56.2 kg (124 lb) 05/08/2025 2:55 PM EST Height 157.5 cm (5' 2 ) 05/08/2025 2:55 PM EST Body Mass Index 22.68 05/08/2025 2:55 PM EST documented in this encounter Functional Status * Over the past 2 weeks, how often have you been bothered by any of the following problems? Question Answer Date of Assessment Author Patient Health Questionnaire -2 Score 6 05/08/2025 3:09 PM EST Leif Stack MA * Little interest or pleasure in doing things Answer Date of Assessment Author Nearly every day 05/08/2025 3:09 PM EST Leif Stack MA * Feeling down, depressed, or hopeless Answer Date of Assessment Author Nearly every day 05/08/2025 3:09 PM EST Leif Stack MA * Trouble falling or staying asleep, or sleeping too much Answer Date of Assessment Author Nearly every day 05/08/2025 3:09 PM EST Leif Stack MA * Feeling tired or having little energy Answer Date of Assessment Author Nearly every day 05/08/2025 3:09 PM EST Leif Stack MA * Poor appetite or overeating Answer Date of Assessment Author Nearly every day 05/08/2025 3:09 PM EST Leif Satck MA * Feeling bad about yourself - or that you are a failure or have let yourself or your family down Answer Date of Assessment Author Nearly every day 05/08/2025 3:09 PM EST Leif Stack MA * Trouble concentrating on things, such as reading the newspaper or watching television Answer Date of Assessment Author More than half the days 05/08/2025 3:09 PM EST Leif Sears MA * Moving or speaking so slowly that other people could have noticed? Or the opposite - being so fidgety or restless that you have been moving around a lot more than usual. Answer Date of Assessment Author Nearly every day 05/08/2025 3:09 PM EST Leif Stack MA * Thoughts that you would be better off or hurting yourself in some way Answer Date of Assessment Author Nearly every day 05/08/2025 3:09 PM EST Leif Stack MA * Patient Health Questionnaire-9 Score Answer Date of Assessment Author 26 05/08/2025 3:09 PM EST Karen Stack MA * Over the last 2 weeks, how often have you been bothered by any of the following problems? Question Answer Date of Assessment Author Feeling nervous, anxious, or on edge 3 05/08/2025 3:09 PM EST Leif Stack MA Not being able to stop or co ntrol worrying 2 05/08/2025 3:09 PM EST Leif Stack MA Worrying too much about diff erent things 3 05/08/2025 3:09 PM EST Leif Stack MA Trouble relaxing 3 05/08/2025 3:09 PM EST Leif Sears MA Being so restless that it is hard to sit still 3 05/08/2025 3:09 PM EST Leif Stack MA Becoming easily annoyed or irritable 3 05/08/2025 3:09 PM EST Leif Stakc MA Feeling afraid as if somethi ng awful might happen 2 05/08/2025 3:09 PM EST Leif Stack MA SAMMI-7 Total Score 19 05/08/2025 3:09 PM Leif Moody MA * How difficult have these problems made it for you to do your work, take care of things at home, or get along with other people? Answer Date of Assessment Author Somewhat difficult 05/08/2025 3:09 PM Leif Moody MA documented as of this encounter Patient Instructions * Patient Instructions* NELLY Santana - 05/08/2025 3:00 PM EST Please call [facility] [place] at [phone] to schedule the mammogram we discussed today. Llame a la Programaci??n Centralizada de [facility] [place] [phone] para programar las pruebas que discutimos hoy. documented in this encounter Progress Notes * NELLY Santana - 05/08/2025 3:00 PM EST SUBJECTIVE: Dot Mak is a 70 y.o. year old female who presents for chronic disease management. Denies recent illness, injury, or hospitalization. PMH smoking, anxiety, HLD, hypertension, nephrolithiasis, osteopenia, diverticulosis Acute Concerns: Depression: mostly stressed by home situation. Has grandkids and great grands living with her and feels like she can't get space and they don't respect her space. She has son in [place] that she goes to stay with for respite which is nice but she wants her home life to calm down. She denies overt SI, identifies her son in [place] as protective factor. Would like BH call. LDCT likely below threshold. Started at 16yo smoking; 5 cigs/d, now down to 1 cig/d Muscle cramps in legs. Taking Fe supplement. Doesn't like cyclobenzaprine and has stopped, feels better w/o it but cramps persist. Started at 16yo smoking; 5 cigs/d, now down to 1 cig/d Not currently sexually active Social History Social History Narrative Not on file Problem List[1] Surgical History[2] Family History[3] Review of Systems Constitutional: Negative for chills and fever. HENT: Negative for sore throat. Respiratory: Negative for cough and shortness of breath. Cardiovascular: Negative for chest pain. Gastrointestinal: Negative for constipation and diarrhea. Endocrine: Negative for polydipsia, polyphagia and polyuria. Genitourinary: Negative for dysuria. Psychiatric/Behavioral: Positive for dysphoric mood and suicidal ideas. Negative for self-injury. The patient is nervous/anxious. OBJECTIVE: Vitals: 05/08/25 1455 BP: (!) 150/82 BP Location: Left arm Patient Position: Sitting BP Cuff Size: Adult Pulse: 83 Resp: 13 Temp: 97.3 ??F (36.3 ??C) TempSrc: Temporal SpO2: 95% Weight: 124 lb (56.2 kg) Height: 5' 2 (1.575 m) Remained elevated on repeat Physical Exam Vitals reviewed. Constitutional: General: She is not in acute distress. Appearance: Normal appearance. She is not ill-appearing. HENT: Head: Normocephalic and atraumatic. Eyes: General: No scleral icterus. Extraocular Movements: Extraocular movements intact. Pupils: Pupils are equal, round, and reactive to light. Cardiovascular: Rate and Rhythm: Normal rate and regular rhythm. Pulmonary: Effort: Pulmonary effort is normal. No accessory muscle usage or respiratory distress. Neurological: Mental Status: She is alert and oriented to person, place, and time. Cranial Nerves: No cranial nerve deficit. Gait: Gait normal. Psychiatric: Mood and Affect: Mood normal. Behavior: Behavior normal. ASSESSMENT/PLAN Dot was seen today for follow-up. Diagnoses and all orders for this visit: Primary hypertension (Primary) BP above goal < 120/80 Recommend home BP checks, log and RN visit to review No change to meds today Encourage to cont w smoking cessation Pending BP log review could increase lisinopril to 40mg, switch to olmesartan 40mg, or add amlodipine 5mg. - Albumin, Random Urine W/Creatinine; Future - Basic Metabolic Panel; Future - Blood Pressure kit; 1 each 2 times daily. Cigarette nicotine dependence without complication Smoking cessation encouraged Below threshold for LDCT Encounter for immunization - FLU VACCINE TRIVALENT HIGH DOSE [id number] (Fluzone) 65 yrs + - COVID-19 VACCINE [id number] (Comirnaty) 19 yrs + - TDAP VACCINE 7 yrs + Iron deficiency anemia, unspecified iron deficiency anemia type - CBC auto differential; Future Osteopenia, unspecified location Good ca and vit d intake, update DEXA 2025, smoking cessation Dyslipidemia Lifestyle recommendations to improve heart health & lower cholesterol: be as active as able, ideally exercise 150min moderate intensity or 75min vigorous intensity weekly; increase intake of vegetables, fruits, whole grains, fish. Try to minimize intake of sugary or greasy food and drink. Use olive oil or vegetable, peanut, canola, or similar oil for cooking. Decrease or stop drinking alcoholif you drink, quit/decrease smoking if you smoke. - Lipid Panel, Standard; Future Muscle cramps Hydrate well. Stretch. Check CBC plus: - Magnesium; Future - Vitamin B12; Future Current moderate episode of major depressive disorder, unspecified whether recurrent (CMS/HCC) (HCC) Pt denies plan and identifies protective factors incl son in [place] - Referral to Behavioral Health; Future This note was drafted using Ambient (AI) technology. The patient/patient's guardian has been informed and has consented to the use of this technology: Yes Follow Up: Future Appointments Date Time Provider Department Center 05/17/2025 10:00 AM Betsy Gurwinder, OD [facility] Medications Ordered Prior to Encounter[4] Icelandic Translation: NA [1] Patient Active Problem List Diagnosis Osteopenia Microscopic hematuria Patellofemoral arthritis of left knee Encounter for preventative adult health care examination Chronic pain of left knee Tobacco dependence Asymptomatic menopausal state Primary hypertension Diverticulitis Acute diverticulitis Anxiety Ataxia 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 No pertinent surgical history. [3] No family history on file. [4] Current Outpatient Medications on File Prior to Visit Medication Sig Dispense Refill acetaminophen (Tylenol 8 Hour) 650 MG ER tablet TAKE 1 TABLET BY MOUTH EVERY 8 HOURS NEEDED FOR PAIN, DO NOT BREAK, CRUSH, DISSOLVE OR CHEW 90 tablet 1 Aspirin Low Dose 81 MG EC tablet TAKE 1 TABLET BY MOUTH EVERY DAY 90 tablet 2 atorvastatin (Lipitor) 10 MG tablet Take 1 tablet (10 mg) by mouth at bedtime. 90 tablet 3 busPIRone (Buspar) 15 MG tablet Take 1 tablet by mouth every 6 (six) hours during the day. cholecalciferol (Vitamin D-3) 25 MCG tablet TAKE 1 TABLET BY MOUTH EVERY DAY 90 tablet 1 clonazePAM (KlonoPIN) 0.5 MG tablet Take 0.5 mg by mouth if needed in the morning and at bedtime. ferrous sulfate 325 (65 Fe) MG tablet Take 1 tablet (325 mg) by mouth with breakfast. 30 tablet 11 hydrocortisone (Anusol-HC) 2.5 % rectal cream Apply rectally 2 times daily 28 g 0 hydrOXYzine HCl (Atarax) 25 MG tablet Take 1 tablet by mouth every 12 (twelve) hours. lisinopril (Prinivil) 20 MG tablet Take 1 tablet (20 mg) by mouth Once per day. 90 tablet 3 meloxicam (Mobic) 15 MG tablet TAKE 1 TABLET BY MOUTH EVERY DAY IN THE MORNING 30 tablet 1 mirtazapine (Remeron) 45 MG tablet Take 1 tablet by mouth at bed time. nicotine polacrilex (Nicorette) 2 MG gum CHEW 1 PIECE OF GUM EVERY 1 TO 2 HOURS NEEDED FOR SMOKING CESSATION. USE IN PLACE OF CIGARETTES 110 each 2 zolpidem (Ambien) 5 MG tablet Take 5 mg by mouth if needed at bedtime. [DISCONTINUED] acetaminophen (Tylenol 8 Hour) 650 MG ER tablet TAKE 1 TABLET BY MOUTH EVERY 8 HOURSAS NEEDED FOR PAIN DO NOT BREAK, CRUSH, DISSOLVE OR CHEW 90 tablet 1 [DISCONTINUED] cyclobenzaprine (Flexeril) 5 MG tablet TAKE 1 TABLET BY MOUTH THREE TIMES DAILY NEEDED FOR PAIN OR FOR MUSCLE SPASMS 60 tablet 0 [DISCONTINUED] meloxicam (Mobic) 15 MG tablet TAKE 1 TABLET BY MOUTH EVERY DAY IN THE MORNING 30 tablet 1 No current facility-administered medications on file prior to visit. documented in this encounter Plan of Treatment Upcoming Encounters Date Type Department Care Team (Late st Contact Info) Description 05/17/2025 10:00 AM EST Office Visit [facility] [address] [place], [place] [phone] Gurwinder, Betsy, OD [address] [place], [place] [phone] Scheduled Orders Name Type Priority Associated Diagnoses Orde r Schedule Lipid Panel, Standard Lab Routine Dyslipidemia Expected: 05/08/2025 (Approximate), Expires: 05/08/2026 Albumin, Random Urine W/Creatinine Lab Routine Primary hypertension Expected: 05/08/2025 (Approximate), Expires: 05/08/2026 Basic Metabolic Panel Lab Routine Primary hypertension Expected: 05/08/2025 (Approximate), Expires: 05/08/2026 Magnesium Lab Routine Muscle cramps Expected: 05/08/2025, Expires: 05/08/2026 Vitamin B12 Lab Routine Muscle cramps Expected: 05/08/2025 (Approximate), Expires: 05/08/2026 documented as of this encounter Procedures Procedure Name Priority Date/Time Associated Diagnosis Comments CBC WITH AUTO DIFFERENTIAL Routine 05/10/2025 10:34 AM EST Iron deficiency anemia, unspecified iron deficiency anemia type documented in this encounter Results * (ABNORMAL) CBC auto differential (05/10/2025 10:34 AM EST) White Blood Count 4.2(L) 4.8 - 10.8 X10*3/uL [facility] Red Blood Count 4.06(L) 4.20 - 5.50 X10*6/uL [facility] Hemoglobin 10.1(L) 12.0 - 16.0 g/dl [facility] Hematocrit 34.6(L) 37.0 - 47.0 % [facility] Mean Corpuscular Volume 85.2 80.0 - 98.0 fL [facility] Mean Corpuscular Hemoglobin 24.9(L) 27.0 - 33.0 pg [facility] Mean Corpuscular HGB Conc 29.2(L) 31.0 - 35.0 g/dl [facility] Red Cell Distribution Width 15.3 11.0 - 16.0 % [facility] Platelet Count 264 160 - 400 X10*3/uL [facility] Mean Platelet Volume 10.7 9.4 - 12.3 fL [facility] Neutrophils Percent Auto 70.2 45 - 73 % [facility] Imm Gran Pct Auto 0.2 0.0 - 0.4 % [facility] Lymphocytes Percent Auto 19.5(L) 20 - 40 % [facility] Monocytes Percent Auto 5.8 2 - 11 % [facility] Eosinophils Percent Auto 3.6 0 - 4 % [facility] Basophils Percent Auto 0.7 0 - 2 % [facility] NRBC Pct Auto 0.0 0.0 - 0.2 /100WBC [facility] Neutrophils Absolute Auto 2.9 2.0 - 8.3 x10*3/uL [facility] Imm Gran Abs Auto 0.01 0.00 - 0.03 X10*3/uL [facility] Lymphocytes Absolute Auto 0.8(L) 1.2 - 4.9 X10*3/uL [facility] Monocytes Absolute Auto 0.2 0.1 - 1.2 X10*3/uL [facility] Eosinophils Absolute Auto 0.2 0.0 - 0.4 X10*3/uL [facility] Basophils Absolute Auto 0.0 0.0 - 0.2 X10*3/uL [facility] NRBC Abs Auto 0.000 0.0 - 0.012 X10*3/uL [facility] Blood Venous blood specimen / Unknown 05/10/2025 10:34 AM EST 05/10/2025 11:21 AM EST Jeanine VILLEGAS LAB BLOOD ORDERABLES Final Resul t [facility] [address] [place] [phone] documented in this encounter Visit Diagnoses Diagnosis Primary hypertension- Primary Unspecified essential hypertension Cigarette nicotine dependence without complication Encounter for immunization Iron deficiency anemia, unspecified iron deficiency anemia type Osteopenia, unspecified location Dyslipidemia Other and unspecified hyperlipidemia Muscle cramps Current moderate episode of major depressive disorder, unspecified whether recurrent (CMS/HCC) (HCC) documented in this encounter Additional Health Concerns Assessment Noted Time PHQ-9 Depression Total Score: 26 025 3:09 PM EST documented as of this encounter Care Teams Multifocal Lens Inspector Relationship Specialty Start Date End Date Jeanine Prince ANP [address] [place] [phone] PCP - General Family Medicine 03/24/21 documented as of this encounter
[2025-05-10 11:27] LABS: MANUAL DIFF FLAG NO
[2025-05-10 11:39] LABS: Hematocrit 34.6 % (37.0-47.0); Hemoglobin 10.1 g/dl (12.0-16.0); Imm Gran Abs Auto 0.01 X10*3/uL (0.00-0.03); Imm Gran Pct Auto 0.2 % (0.0-0.4); Lymphocytes Absolute Auto 0.8 X10*3/uL (1.2-4.9); Mean Corpuscular HGB Conc 29.2 g/dl (31.0-35.0); Mean Corpuscular Hemoglobin 24.9 pg (27.0-33.0); Mean Corpuscular Volume 85.2 fL (80.0-98.0); NRBC Abs Auto 0.000 X10*3/uL (0.0-0.012); NRBC Pct Auto 0.0 /100WBC (0.0-0.2); Platelet Count 264 X10*3/uL (160-400); Red Blood Count 4.06 X10*6/uL (4.20-5.50); White Blood Count 4.2 X10*3/uL (4.8-10.8)
--- OUTSIDE RECORDS SUMMARY | 2025-05-10 12:03 | XMS_ITS | Encounter Summary ---
Author Organization [employer] Address [address] [place] [address] Care Team Providers Care President/[employer] Live Experiences Name Role Phone Jeanine Prince Primary Care Provider [phone] Reason for Visit * Reason Comments Med Refill Encounter Details Date Type Department Care Team (Late st Contact Info) Description 10/10/2024 Refill [facility] [address] [place], [place] [phone] Jeanine Prince ANP [address] [place] [address] Social History Tobacco Use Types Packs/Day Years [...] t he electric, gas, oil or water c-crowd threatened to shut off services in your [...] Description 05/17/2025 10:00 AM EST Office Visit [facility] [address] [place], [place] [phone] Betsy Purdy, OD [address] [place] [address] documented as of this encounter Visit Diagnoses Not on filedocumented in this encounter Additional Health Concerns Assessment Noted Time PHQ-9 Depression Total Score: 0 08/15/19 24 2:24 PM EDT documented as of this encounter Care Teams President/[employer] & Live Experiences Relationship Specialty Start Date End Date Jeanine Prince ANP [address] [place] [address] PCP - General Family Medicine 03/24/21 documented as of this encounter
--- OUTSIDE RECORDS SUMMARY | 2025-05-10 12:03 | XMS_ITS | Encounter Summary ---
Author Organization [employer] Address [address] [place] [address] Care Team Providers Care Glaciologist Name Role Phone Jeanine Prince Primary Care Provider [phone] Encounter Details Date Type Department Care Team (Late st Contact Info) Description 09/21/2024 Orders Only [facility] [address] [place], [place] [phone] Jeanine Prince ANP [address] [place] [address] Social History Tobacco Use Types Packs/Day Years [...] Description 05/17/2025 10:00 AM EST Office Visit [facility] [address] [place] [address] Betsy Purdy, GABRIELA [address] [place] [address] documented as of this encounter Visit Diagnoses Not on filedocumented in this encounter Additional Health Concerns Assessment Noted Time PHQ-9 Depression Total Score: 0 08/15/19 24 2:24 PM EDT documented as of this encounter Care Teams Glaciologist Relationship Specialty Start Date End Date Jeanine Prince ANP [address] [place], [place] [phone] PCP - General Family Medicine 03/24/21 documented as of this encounter
--- OUTSIDE RECORDS SUMMARY | 2025-05-10 12:05 | XMS_ITS | Encounter Summary ---
Author Organization [employer] Address [address] [facility] [address] [facility] [address] [place] [address] Care Team Providers Care Wireless Network Engineer Name Role Phone Jeanine Prince NELLY Primary Care Provider Encounter Details Date Type Department Care Team (Latest Contact Info) Description 05/08/2025 Travel Social History Tobacco Use Types Packs/Day Years [...] your housing situation today? I have ihsan christina 03/12/[address] you li [...] AM EDT documented as of this encounter Functional Status * Over the past 2 weeks, how often have you been bothered by any of the following problems? Question Answer Date of Assessment Author Patient Health Questionnaire -2 Score 6 05/08/2025 3:09 PM Leif Moody MA * Little interest or pleasure in doing things Answer Date of Assessment Author Nearly every day 05/08/2025 3:09 PM Leif Moody MA * Feeling down, depressed, or hopeless Answer Date of Assessment Author Nearly every day 05/08/2025 3:09 PM Leif Moody MA * Trouble falling or staying asleep, or sleeping too much Answer Date of Assessment Author Nearly every day 05/08/2025 3:09 PM Leif Moody MA * Feeling tired or having little energy Answer Date of Assessment Author Nearly every day 05/08/2025 3:09 PM Leif Moody MA * Poor appetite or overeating Answer Date of Assessment Author Nearly every day 05/08/2025 3:09 PM Leif Moody MA * Feeling bad about yourself - or that you are a failure or have let yourself or your family down Answer Date of Assessment Author Nearly every day 05/08/2025 3:09 PM Leif Moody MA * Trouble concentrating on things, such as reading the newspaper or watching television Answer Date of Assessment Author More than half the days 05/08/2025 3:09 PM Leif Hampton MA * Moving or speaking so slowly that other people could have noticed? Or the opposite - being so fidgety or restless that you have been moving around a lot more than usual. Answer Date of Assessment Author Nearly every day 05/08/2025 3:09 PM Leif Moody MA * Thoughts that you would be better off or hurting yourself in some way Answer Date of Assessment Author Nearly every day 05/08/2025 3:09 PM Leif Moody MA * Patient Health Questionnaire-9 Score Answer Date of Assessment Author 26 05/08/2025 3:09 PM Karen Moody MA * Over the last 2 weeks, how often have you been bothered by any of the following problems? Question Answer Date of Assessment Author Feeling nervous, anxious, or on edge 3 05/08/2025 3:09 PM Leif Moody MA Not being able to stop or co ntrol worrying 2 05/08/2025 3:09 PM Leif Moody MA Worrying too much about diff erent things 3 05/08/2025 3:09 PM Leif Moody MA Trouble relaxing 3 05/08/2025 3:09 PM Leif Hampton MA Being so restless that it is hard to sit still 3 05/08/2025 3:09 PM Leif Moody MA Becoming easily annoyed or irritable 3 05/08/2025 3:09 PM Leif Moody MA Feeling afraid as if somethi ng awful might happen 2 05/08/2025 3:09 PM Leif Moody MA SAMMI-7 Total Score 19 05/08/2025 3:09 PM Leif Moody MA * How difficult have these problems made it for you to do your work, take care of things at home, or get along with other people? Answer Date of Assessment Author Somewhat difficult 05/08/2025 3:09 PM Leif Moody MA documented as of this encounter Plan of Treatment Upcoming Encounters Date Type Department Care Team (Late st Contact Info) Description 05/17/2025 10:00 AM EST Office Visit [facility] OPT[facility] [address] [place] [address] Betsy Purdy, OD [address] [place] [address] documented as of this encounter Visit Diagnoses Not on filedocumented in this encounter Additional Health Concerns Assessment Noted Time PHQ-9 Depression Total Score: 26 025 3:09 PM EST documented as of this encounter Care Teams Wireless Network Engineer Relationship Specialty Start Date End Date Jeanine Prince ANP [address] [place] [address] PCP - General Family Medicine 03/24/21 documented as of this encounter
--- OUTSIDE RECORDS SUMMARY | 2025-05-10 12:05 | XMS_ITS | Encounter Summary ---
Author Organization [employer] Address [address] [facility] [address] [place] [address] Care Team Providers Care Transcription Manager Name Role Phone Jeanine Prince Primary Care Provider [phone] Reason for Visit * Reason Comments Med Refill Encounter Details Date Type Department Care Team (Late Contact Info) Description 08/05/2022 Refill [facility] [address] [place], [place] [phone] Jeanine Prince ANP [address] [place] [address] Chronic lumbosacral pain Social History Tobacco Use Types Packs/Day Years Used Date Smoking Tobacco: Every Day Cigarettes Smokeless Tobacco: Never Alcohol Use Standard Drinks/Week Comments Yes 0 (1 standard drink = 0.6 oz pur e alcohol) Depression Answer Date Recorded Patient Health Questionnaire-2 Score 0 07/22/2022 Comments Unknown Sex and Gender Information Value Date Recorded Sex Assigned at Female 04/05/2022 10:26 AM EDT Legal Sex Female 10:26 AM EDT Gender Identity Female 04/05/2022 10:26 AM EDT Sexual Orientation Straight 04/05/2022 10 :26 AM EDT COVID-19 Exposure Response Date Recorded In the last 10 days, have yo u been in contact with someone who was confirmed or suspected to have Coronavirus/COVID-19? No / Unsure 07/22/2022 9:00 AM EST documented as of this encounter Plan of Treatment Upcoming Encounters Date Type Department Care Team (Late Contact Info) Description 05/17/2025 10:00 AM EST Office Visit [facility] OPTOMETRY [address] [place], [place] [phone] GurwinderBetsy prasad, OD [address] [place], [place] [phone] documented as of this encounter Visit Diagnoses Diagnosis Chronic lumbosacral pain documented in this encounter Care Teams Transcription Manager Relationship Specialty Start Date End Date Jeanine Prince ANP [address] [place] [address] PCP - General Family Medicine 03/24/21 documented as of this encounter
--- OUTSIDE RECORDS SUMMARY | 2025-05-10 12:05 | XMS_ITS | Clinical Summary ---
Author Organization [employer] Address [address] [facility] [place] [address] Care Team Providers Care Body Service Team Member Name Role Phone Ludmila Molina NELLY Primary Care Provider [phone] Allergies Active Allergy Reactions Criticality Noted Date Comments Green Dye Swelling 03/24/2021 Iodinated Contrast Media Anaphylaxis High 11/09/2022 Medications hydrOXYzine HCl (Atarax) 25 MG tablet Take 1 tablet by mouth every 12 (twelve) hours. 01/13/20 21 Active mirtazapine (Remeron) 45 MG tablet Take 1 tablet by mouth at bed time. Active zolpidem (Ambien) 5 MG tablet Take 5 mg by mouth if needed at bedtime. 05/21/20 22 Active clonazePAM (KlonoPIN) 0.5 MG tablet Take 0.5 mg by mouth if needed in the morning and at bedtime. 08/25/19 24 Active lisinopril (Prinivil) 20 MG tabletIndicatio ns:Primary hypertension Take 1 tablet (20 mg) by mouth Once per day. 90 tablet 3 07/02/19 25 026 Active atorvastatin (Lipitor) 10 MG tabletIndicatio ns:Dyslipidemia Take 1 tablet (10 mg) by mouth at bedtime. 90 tablet 3 08/09/19 25 Active cholecalciferol (Vitamin D-3) 25 MCG tabletIndicatio ns:Osteopenia of necks of both femurs TAKE 1 TABLET BY MOUTH EVERY DAY 90 tablet 1 09/11/19 25 Active nicotine polacrilex (Nicorette) 2 MG gumIndications: Tobacco dependence CHEW 1 PIECE OF GUM EVERY 1 TO 2 HOURS NEEDED FOR SMOKING CESSATION. USE IN PLACE OF CIGARETTES 110 each 2 10/19/19 25 Active busPIRone (Buspar) 15 MG tablet Take 1 tablet by mouth every 6 (six) hours during the day. 11/14/19 25 Active Aspirin Low Dose 81 MG EC tablet TAKE 1 TABLET BY MOUTH EVERY DAY 90 tablet 2 12/06/19 25 Active ferrous sulfate 325 (65 Fe) MG tabletIndicatio ns:Rectal bleeding,Non Morse Intercept Technician al hemorrhoid Take 1 tablet (325 mg) by mouth with breakfast. 30 tablet 11 01/15/20 25 026 Active hydrocortisone (Anusol-HC) 2.5 % rectal creamIndication s:Rectal bleeding,Non Morse Intercept Technician al hemorrhoid Apply rectally 2 times daily 28 g 01/15/20 25 026 Active acetaminophen (Tylenol 8 Hour) 650 MG ER tablet TAKE 1 TABLET BY MOUTH EVERY 8 HOURS NEEDED FOR PAIN, DO NOT BREAK, CRUSH, DISSOLVE OR CHEW 90 tablet 1 05/06/20 25 Active meloxicam (Mobic) 15 MG tabletIndicatio ns:Chronic pain of left knee TAKE 1 TABLET BY MOUTH EVERY DAY IN THE MORNING 30 tablet 1 5 10:55 AM EST 05/06/20 25 Active Blood Pressure kitIndications: Primary hypertension 1 each 2 times daily. 1 kit 05/08/20 25 026 Active acetaminophen (Tylenol 8 Hour) 650 MG ER tablet TAKE 1 TABLET BY MOUTH EVERY 8 HOURS NEEDED FOR PAIN DO NOT BREAK, CRUSH, DISSOLVE OR CHEW 90 tablet 1 02/08/20 25 025 Discontinued meloxicam (Mobic) 15 MG tabletIndicatio ns:Chronic pain of left knee TAKE 1 TABLET BY MOUTH EVERY DAY IN THE MORNING 30 tablet 1 03/08/20 25 025 Discontinued cyclobenzaprine (Flexeril) 5 MG tabletIndicatio ns:Chronic lumbosacral pain TAKE 1 TABLET BY MOUTH THREE TIMES DAILY NEEDED FOR PAIN OR FOR MUSCLE SPASMS 60 tablet 03/15/20 25 025 Discontinued(T herapy completed) Active Problems Problem Noted Date Diagnosed Date Acute diverticulitis 02/26/2025 Anxiety 02/26/2025 Ataxia 02/26/2025 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 Chronic pain 02/26/2025 Dysphagia 02/26/2025 Nephrolithiasis 02/26/2025 Left knee pain 02/26/2025 Nicotine dependence 02/26/2025 Diverticulitis 07/02/2024 Encounter for preventative adult health care exunique mination 08/15/2023 Assessment & Plan (08/15/2023 3:14 PM EDT): See HPI Chronic pain of left knee 08/15/2023 Tobacco dependence 08/15/2023 Asymptomatic menopausal state 08/15/2023 Primary hypertension 08/15/2023 Assessment & Plan (08/15/2023 3:13 PM EDT): I advise low Na diet and to take her BP medication every day, keep monitoring BP at home and f/u with PCP Microscopic hematuria 04/15/2023 04/15/2023 Patellofemoral arthritis of left knee 04/15/2023 04/15/2023 Osteopenia 03/16/2022 Encounters Date Type Department Care Team Description 05/08/2025 3:00 PM EST Office Visit [facility] [address] [place] [phone] Ludmila Molina ANP Primary hypertension (Primary Dx); Cigarette nicotine dependence without complication; Encounter for immunization; Iron deficiency anemia, unspecified iron deficiency anemia type; Osteopenia, unspecified location; Dyslipidemia; Muscle cramps; Current moderate episode of major depressive disorder, unspecified whether recurrent (CMS/HCC) ([facility]) 05/08/2025 Telephone [facility] [address] [place] [phone] Ludmila Molina ANP Appointment Request 05/08/2025 Travel 05/07/2025 Telephone [facility] [address] [place] [phone] Ludmila Molina ANP chartprep 05/05/2025 Refill [facility] [address] [place] [address] Ludmila Molina ANP Chronic pain of left knee 03/18/2025 Telephone [facility] [address] [place] [phone] Ludmila Molina ANP chart prep 03/14/2025 Refill [facility] [address] [place] [address] Ludmila Molina ANP Chronic lumbosacral pain 03/12/2025 Patient Outreach [address] [address] Ludmila Molina ANP Care Coordination (CH[facility] outreach for SDOH PT-1 and food needs-LVM ) 03/12/2025 Patient Outreach [address] [address] Ludmila Molina ANP Pre-visit Planning (SDOH Screening positive and Tobacco screening positive) 03/08/[address] [address] Ludmila Molina ANP Chronic pain of left knee 02/26/[address] [address] Jeremie Campos CNP No Show 02/21/[address] [address] Ludmila Molina ANP No Show 02/20/[address] [phone] Ludmila Molina ANP chart prep 02/13/2025 Telephone [facility] [address] [place], [place] [phone] Ludmila Molina ANP chart prep from Last 3 Months Immunizations Immunization Administration Dates Next Due Influenza High-dose Quadriva lent Preservative Free 04/15/2023,03/24/2021 Influenza injectable quadriv alent preservative free 07/22/2022 Influenza, High Dose Seasona l, Preservative Free 05/08/2025,07/02/2024 Influenza, IIV3, injectable 02/27/2019,1 ,05/20/2014,2013,05/17/2012,06/16/2010 Moderna Covid-19 Vaccine 12+ 12/15/2020,10/10/19 21 Moderna Covid-19 Vaccine 6+ Bivalent 07/22/2022 Pfizer Covid-19 Vaccine 12+ 05/08/2025 Pneumococcal Conjugate PCV 13 03/24/2021 Pneumococcal Conjugate PCV 20 07/02/2024 RSV Bivalent 08/06/2024 Td (adult), 5 Lf tetanus tox oid, preservative free, adsorbed 02/27/2017,11/06/2012 Td (adult), unspecified 11/26/2009 Tdap 05/08/2025 Social History Tobacco Use Types Packs/Day Years [...] Orientation Straight 04/05/2022 10 :26 AM EDT Last Filed Vital Signs Vital Sign Reading [...] Mass Index 22.68 05/08/2025 2:55 PM EST Plan of Treatment Upcoming Encounters Date Type Department Care Team (Late st Contact Info) Description 05/17/2025 10:00 AM EST Office Visit [facility] OPTOMETRY [address] [place], [place] [phone] Gurwinder, Betsy, OD [address] [place] [address] Health Maintenance Due Date Last Done Comments CT Colonography 1955 FIT DNA/Cologuard 1955 FIT 1955 FOBT 1955 Sigmoidoscopy 1955 Hepatitis C Screening 1973 Zoster Vaccines (1 of 2) 2005 Mammogram 10/04/2024 10/04/2022, 11/2021, 02/09/2022 COVID-19 Vaccine ( season) 2025 05/08/2025, 07/22/2022, 12/15/2020, Additional history exists Depression Monitoring 11/06/2025 05/08/2025, 025 SDOH Screening 03/12/2026 03/12/2025 Alcohol/Substance Use Screening 05/08/2026 05/08/2025 Tobacco Screening 05/08/2026 05/08/2025 Colonoscopy 08/04/2026 Colorectal Cancer Screening 08/04/2026 Lipid Panel 01/15/2027 01/15/2022, 01/12/2021 DTaP/Tdap/Td Vaccines (2 - Td or Tdap) 05/08/2035 05/08/2025, 02/27/2017, 11/06/2012, Additional history exists Pneumococcal Vaccine: 50+ Years Completed 07/02/2024, 03/24/2021 RSV Patients and Patients Aged 60 years or older Completed 08/06/2024 Influenza Vaccine Completed 05/08/2025, , 04/15/2023, Additional history exists HIB Vaccines Aged Out No longer eligi ble based on patient's age to complete this topic HPV Vaccines Aged Out No longer eligi ble based on patient's age to complete this topic Hepatitis A Vaccines Aged Out No long er eligible based on patient's age to complete this topic Hepatitis B Vaccines Aged Out No long er eligible based on patient's age to complete this topic IPV Vaccines Aged Out No longer eligi ble based on patient's age to complete this topic Meningococcal B Vaccine Aged Out No l onger eligible based on patient's age to complete this topic Meningococcal Vaccine Aged Out No carine romulo eligible based on patient's age to complete this topic RSV under 20 months Aged Out No longe r eligible based on patient's age to complete this topic Rotavirus Vaccines Aged Out No longer eligible based on patient's age to complete this topic Procedures Procedure Name Priority Date/Time Associated Diagnosis Comments CBC WITH AUTO DIFFERENTIAL Routine 05/10/2025 10:34 AM EST Iron deficiency anemia, unspecified iron deficiency anemia type BI MAMMOGRAM SCREENING TOMOSYNTHESIS BILATERAL Routine 10/04/2022 9:30 AM EDT LIPID PANEL, STANDARD Routine 01/15/2022 9:38 AM EDT from Last 3 Months or Most Recently Relevant to Health Maintenance Results * (ABNORMAL) CBC auto differential (05/10/2025 10:34 AM EST) White Blood Count 4.2(L) 4.8 - 10.8 X10*3/uL [facility] Red Blood Count 4.06(L) 4.20 - 5.50 X10*6/uL [facility] Hemoglobin 10.1(L) 12.0 - 16.0 g/dl [facility] Hematocrit 34.6(L) 37.0 - 47.0 % [facility] Mean Corpuscular Volume 85.2 80.0 - 98.0 fL [facility] Mean Corpuscular Hemoglobin 24.9(L) 27.0 - 33.0 pg [facility] Mean Corpuscular HGB Conc 29.2(L) 31.0 - 35.0 g/dl [facility] Red Cell Distribution Width 15.3 11.0 - 16.0 % [facility] Platelet Count 264 160 - 400 X10*3/uL [facility] Mean Platelet Volume 10.7 9.4 - 12.3 fL [facility] Neutrophils Percent Auto 70.2 45 - 73 % [facility] Imm Gran Pct Auto 0.2 0.0 - 0.4 % [facility] Lymphocytes Percent Auto 19.5(L) 20 - 40 % [facility] Monocytes Percent Auto 5.8 2 - 11 % [facility] Eosinophils Percent Auto 3.6 0 - 4 % [facility] Basophils Percent Auto 0.7 0 - 2 % [facility] NRBC Pct Auto 0.0 0.0 - 0.2 /100WBC [facility] Neutrophils Absolute Auto 2.9 2.0 - 8.3 x10*3/uL [facility] Imm Gran Abs Auto 0.01 0.00 - 0.03 X10*3/uL [facility] Lymphocytes Absolute Auto 0.8(L) 1.2 - 4.9 X10*3/uL [facility] Monocytes Absolute Auto 0.2 0.1 - 1.2 X10*3/uL [facility] Eosinophils Absolute Auto 0.2 0.0 - 0.4 X10*3/uL [facility] Basophils Absolute Auto 0.0 0.0 - 0.2 X10*3/uL [facility] NRBC Abs Auto 0.000 0.0 - 0.012 X10*3/uL [facility] Blood Venous blood specimen / Unknown 05/10/2025 10:34 AM EST 05/10/2025 11:21 AM EST Ludmila Molina [facility] LAB BLOOD ORDERABLES Final Resul t [facility] [address] [place] [address] [phone] * BI Mammogram Screening Tomosynthesis Bilateral (10/04/2022 9:30 AM EDT) Anatomical Region Laterality Modality Breast Bilateral Mammography 10/04/2022 9:30 AM EDT Narrative 10/05/2022 11:39 AM EDT [facility] [address] [place] [address] Mammography Report Signed Patient: Dot Mak MR#: [id number] : 1955 Acct:[id number] Age/Sex: 67 / F ADM Date: 10/04/22 Loc: HO.MAMMO Attending Dr: Ludmila Molina NP Ordering Physician: LUDMILA MOLINA NP Results: [facility] Date of Service: 10/04/22 Follow Up: 1 Year From [facility] Mammogram Procedure(s): MM tomosynthesis screening BI Accession Number(s): [id number] cc: LUDMILA MOLINA NP EXAMINATION: MM SCREENING DIGITAL BREAST TOMOSYNTHESIS, BILATERAL CLINICAL INFORMATION: Screening. Asymptomatic. The lifetime risk of breast cancer based on the Tyrer-Cuzick Model is 3%. COMPARISON: Mammography: 03/18/2017, 07/08/2015, 04/26/2012 TECHNIQUE: Digital breast tomosynthesis is performed in both the craniocaudal and mediolateral oblique views along with computer-aided detection (CAD). Synthesized 2D images are generated from the tomosynthesis. FINDINGS: There are scattered areas of fibroglandular density (ACR BI-RADS breast composition Category b). There are no significant masses, abnormal calcifications, or other abnormalities. There are some scattered fine vascular calcifications in each breast. The axilla and skin contours are unremarkable. No significant changes. MM/MM tomosynthesis screening BI IMPRESSION: No mammographic evidence of malignancy. ASSESSMENT: BI-RADS 2: Benign RECOMMENDATION: Routine annual mammography screening. This patient's information was entered into a reminder system with a target due date for their next mammogram. Dictated By: Joshua Obregon MD Signed By: <Electronically signed by Joshua Obregon MD in OV> 10/05/22 113 DD/ 9 TD/TT: Electronic Industrial Controls Mechanic: MARTELL Procedure Note Donotuseinterpreter, Image - 12/02/2022 [facility] [address] [place], [place] [address] Mammography Report Signed Patient: Dot Mak MMR#: [id number] : 5Acct:[id number] Age/Sex: 67 / FADM Date: 10/04/22 Loc: HO.MAMMO Attending Dr: Ludmila Molina NP Ordering Physician: LUDMILA MOLINA NPResults: 2Benign Mariano espinoza Date of Service: 10/04/22Follow Up: 1 Year From Orig inal Mammogram Procedure(s): MM tomosynthesis screening BI Accession Number(s): [id number] cc: LUDMILA MOLINA NP EXAMINATION: MM SCREENING DIGITAL BREAST TOMOSYNTHESIS, BILATERAL CLINICAL INFORMATION: Screening. Asymptomatic. The lifetime risk of breast cancer based on the Tyrer-Cuzick Model is 3%. COMPARISON: Mammography: 03/18/2017, 07/08/2015, 04/26/2012 TECHNIQUE: Digital breast tomosynthesis is performed in both the craniocaudal and mediolateral oblique views along with computer-aided detection (CAD). Synthesized 2D images are generated from the tomosynthesis. FINDINGS: There are scattered areas of fibroglandular density (ACR BI-RADS breast composition Category b). There are no significant masses, abnormal calcifications, or other abnormalities. There are some scattered fine vascular calcifications in each breast. The axilla and skin contours are unremarkable. No significant changes. MM/MM tomosynthesis screening BI IMPRESSION: No mammographic evidence of malignancy. ASSESSMENT: BI-RADS 2: Benign RECOMMENDATION: Routine annual mammography screening. This patient's information was entered into a reminder system with a target due date for their next mammogram. Dictated By: Joshua Obregon MD Signed By: <Electronically signed by Joshua Obregon MD in OV> 10/05/22 1136 DD/ 9 TD/TT: Electronic Industrial Controls Mechanic: MARTELL [facility] External Provider IMG BI PROCEDURES Final Result * LIPID PANEL, STANDARD (01/15/2022 9:38 AM EDT) Chol/HDLC Ratio 2.7 <5.0 (calc) [facility] Cholesterol, Total 164 <200 mg/dL [facility] HDL Cholesterol 60 > OR = 50 mg/dL [facility] LDL Cholesterol 81 mg/dL (calc) [facility] Comment: Reference range: <100 Desirable range <100 mg/dL for primary prevention; <70 mg/dL for patients with CHD or diabetic patients with > or = 2 CHD risk factors. LDL-C is now calculated using the Angelique calculation, which is a validated novel method providing better accuracy than the Friedewald equation in the estimation of LDL-C. Archie SS et al. EKTA. 2013;310(19): 5878-3599 (http://education.Circa.Toodalu/faq/CQG974) Non-HDL Cholesterol 104 <130 mg/dL (calc) [facility] Comment: For patients with diabetes plus 1 major ASCVD risk factor, treating to a non-HDL-C goal of <100 mg/dL (LDL-C of <70 mg/dL) is considered a therapeutic option. Triglycerides 136 <150 mg/dL [facility] 01/15/2022 9:38 AM EDT [facility] LAB BLOOD ORDERABLES Final Resul t [facility] [address] from Last 3 Months or Most Recently Relevant to Health Maintenance Insurance [facility] STANDARD [facility] [employer] OPTIONS (HMO D-SNP) Care Teams Body Service Team Member Relationship Specialty Start Date End Date Ludmila Molina ANP [address] [place] [id number] PCP - General Family Medicine 03/24/21
--- OUTSIDE RECORDS SUMMARY | 2025-05-10 12:05 | XMS_ITS | Encounter Summary ---
Author Organization [employer] Address [address] [place] [address] Care Team Providers Care Shingle Carrier Name Role Phone Jeanine Prince Primary Care Provider [phone] Reason for Visit * Reason Onset Date Comments Appointment Request 05/08/2025 Encounter Details Date Type Department Care Team ([facility] st Contact Info) Description 05/08/2025 Telephone [facility] [address] [place], [place] [phone] Jeanine Prince ANP [address] [place] [address] Appointment Request Social History Tobacco Use Types Packs/Day Years [...] half the days 05/08/2025 3:09 PM EST R obles, [place], [place] * Moving or speaking so slowly [...] [place] documented as of this encounter Miscellaneous Notes * Telephone Encounter - Debbie Henley - 05/08/2025 4:24 PM EST Called Patient no answer left vm, advised to call back and schedule 30 min BP check with Jeb RN in 1 month. If Patient calls back ok to schedule. documented in this encounter Plan of Treatment Upcoming Encounters Date Type Department Care Team ([facility] st Contact Info) Description 05/17/2025 10:00 AM EST Office Visit [facility] [address] [place] [address] Betsy Purdy, GABRIELA [address] [place] [address] documented as of this encounter Visit Diagnoses Not on filedocumented in this encounter Additional Health Concerns Assessment Noted Time PHQ-9 Depression Total Score: 26 025 3:09 PM EST documented as of this encounter Care Teams Shingle Carrier Relationship Specialty Start Date End Date Jeanine Prince ANP [address] [place] [address] PCP - General Family Medicine 03/24/21 documented as of this encounter
--- OUTSIDE RECORDS SUMMARY | 2025-05-10 12:05 | XMS_ITS | Encounter Summary ---
Author Organization [email or web address] Address [address] [place] [address] Care Team Providers Care Quail Farmer Name Role Phone Jeanine Prince Primary Care Provider [phone] Reason for Visit * Reason Comments Med Refill Encounter Details Date Type Department Care Team (Late st Contact Info) Description 05/05/[address] [facility] [address] [place], [place] [phone] Jeanine Prince ANP [address] [place] [address] Chronic pain of left knee Social History Tobacco Use Types Packs/Day Years [...] Recorded Patient Health Questionnaire-2 Score 0 08/15/2023 Internet Access Answer Date Recorded Internet Access [...] Description 05/17/2025 10:00 AM EST Office Visit [facility] [address] [place] [address] GurwinderBetsy prasad, OD [address] [place] [address] documented as of this encounter Visit Diagnoses Diagnosis Chronic pain of left knee documented in this encounter Additional Health Concerns Assessment Noted Time PHQ-9 Depression Total Score: 0 08/15/19 24 2:24 PM EDT documented as of this encounter Care Teams Quail Farmer Relationship Specialty Start Date End Date Jeanine Prince ANP [address] [place] [address] PCP - General Family Medicine 03/24/21 documented as of this encounter
--- OUTSIDE RECORDS SUMMARY | 2025-05-10 12:05 | XMS_ITS | Encounter Summary ---
Author Organization [employer] Address [address] [place] [address] Care Team Providers Care Drier And Pulverizer Tender Name Role Phone Jeanine Prince Primary Care Provider [phone] Reason for Visit * Reason Onset Date Comments chartprep 05/07/2025 Encounter Details Date Type Department Care Team ([facility] st Contact Info) Description 05/07/2025 Telephone [facility] [address] [place], [place] [phone] Jeanine Prince ANP [address] [place] [address] chartprep Social History Tobacco Use Types Packs/Day Years [...] AM EDT documented as of this encounter Miscellaneous Notes * Telephone Encounter - July Jo [place] - 05/07/2025 8:44 AM EST ..Chart Prep Labs: done Images: done Vaccines due: Covid Due, Tdap Due, Flu Due, and Shingles in pharmacy Due Referrals: Not Applicable Screenings: Mammogram Overdue care gaps: SDOH, PHQ9, and GAD7 documented in this encounter Plan of Treatment Upcoming Encounters Date Type Department Care Team (Late st Contact Info) Description 05/17/2025 10:00 AM EST Office Visit [facility] [address] [place] [address] Gurwinder, Betsy, OD [address] [place] [address] documented as of this encounter Visit Diagnoses Not on filedocumented in this encounter Additional Health Concerns Assessment Noted Time PHQ-9 Depression Total Score: 0 08/15/19 24 2:24 PM EDT documented as of this encounter Care Teams Drier And Pulverizer Tender Relationship Specialty Start Date End Date Jeanine Prince ANP [address] [place] [address] PCP - General Family Medicine 03/24/21 documented as of this encounter
[2025-05-10 12:17] LABS: Microalbum/Creatinine Ratio Ur 63.2 ug/mg cr (<30)
[2025-05-10 14:11] LABS: Anion Gap 11 (12-20); Blood Urea Nitrogen 18 mg/dL (9-16); Calcium 10.0 mg/dL (8.4-10.2); Carbon Dioxide 27 mmol/L (22-29); Chloride 109 mmol/L (96-108); Cholesterol 164 mg/dL (<200); Estimated Glomerular Filt Rate > 60; HDL Cholesterol 56 mg/dL (>40); Magnesium 1.9 mg/dL (1.6-2.6); Potassium 4.3 mmol/L (3.3-5.1); Sodium 143 mmol/L (135-145); Triglycerides 101 mg/dL (<150)
[2025-05-10 14:40] LABS: Vitamin B12 317 pg/mL (200-900)
== END 2025-05-10 10:26 | disposition home or self-care (01) ==
LOC: HO.HHCL 10:25
PROVIDERS: PCP Nurse Practitioner Primary Care; Visit Provider Nurse Practitioner Primary Care
DX: I10 Essential (primary) hypertension (principal); R25.2 Cramp and spasm; E78.5 Hyperlipidemia, unspecified; D50.9 Iron deficiency anemia, unspecified
CPT/HCPCS: 36415; 80048; 80061; 82043; 82570; 82607; 83735; 85025